=== PATIENT | male | born 1945 | race Caucasian/White ===

== ENCOUNTER 2018-03-31 11:10 | Inpatient (IN) | payer MEDICARE, SELFPAY ==
[2018-03-31] VITALS (11 sets, daily range): BP systolic 94–133; BP diastolic 64–82; PULSE 83–110; RESP 15–29; TEMP 36.6–37.1; O2SAT 92–99; BMI 38.0; BMI 37.3
--- NOTE | 2018-03-31 11:59 | EKG12_ITS ---
Test Reason : SEIZURE Blood Pressure : / mmHG Vent. Rate : 109 BPM Atrial Rate : 109 BPM P-R Int : 210 ms QRS Dur : 078 ms QT Int : 340 ms P-R-T Axes : 053 001 094 degrees QTc Int : 457 ms Sinus tachycardia with 1st degree A-V block Nonspecific T wave abnormality Abnormal ECG Confirmed by NURIA ELIAS, BRIELLE ([id number]), assignment desk editor KIRSTIN MONTANA ([id number]) on 04/03/2018 10:06:10 AM Referred By: CAMILA Confirmed By:BRIELLE QUIÑONES MD
--- NOTE | 2018-03-31 11:59 | CT_ITS ---
STUDY: CT BRAIN WITHOUT CONTRAST REASON FOR EXAM: Male, 72 years old. History of lung cancer and seizure. RADIATION DOSAGE (If Supplied By Facility): CTDIvol = ( 44.99 ) mGy, DLP = ( 880.47 ) mGycm TECHNIQUE: Transaxial CT imaging of the brain was performed without administration of intravenous contrast material. Individualized dose optimization techniques were used for this CT. COMPARISON: None. FINDINGS: Normal soft tissue structures. Normal calvarium. The ventricles are normal in size and position. There is mild prominence of the cortical sulci. There are mild areas of decreased attenuation within the white matter tracts of the supratentorial brain, consistent with microvascular disease changes. Normal basal ganglia and thalami. Normal brainstem. Normal cerebellum. There is no intracranial hemorrhage. There are no findings of an acute ischemic infarction. There are calcifications of the cavernous internal carotid arteries. Normal visualized paranasal sinuses. CT/Brain/Head without Contrast IMPRESSION: 1. No acute intracranial process. 2. If symptoms persist, MRI of the brain is recommended. Electronically Signed: Homero Zhang MD at 13:58 EDT Tel , Service support ,
--- NOTE | 2018-03-31 12:05 | NURSING ---
NO OLD EKGS
--- NOTE | 2018-03-31 12:10 | RAD_ITS ---
STUDY: X-RAY CHEST REASON FOR EXAM: Male, 72 years old. Syncope. History of lung cancer. TECHNIQUE: Single AP portable view of the chest. COMPARISON: Prior comparison studies are not available for review at this time. FINDINGS: There is a left-sided Port-A-Cath with in the superior vena cava. The patient is markedly rotated. There is loss of volume of the right lung with elevation of the medial aspect of the right hemidiaphragm. There is a linear stranding in the right perihilar region which could be due to atelectasis. The left lung base and the left costophrenic angle are not entirely included on this examination. There is no evidence of pleural effusions. Normal size heart. There is prominence of the right hilar region probably exaggerated by patient's positioning. Normal visualized pulmonary arteries. Normal visualized aortic arch and descending thoracic aorta. The thoracic spine is not well-visualized. Normal visualized ribs, clavicles, and shoulders. There is no demonstrated abnormality of the visualized soft tissue structures of the upper abdomen. RAD/Chest 1 View (Portable) IMPRESSION: Mild loss of volume of the right lung. Possible mild right perihilar infiltrate and atelectatic changes. Follow-up exams are recommended. Electronically Signed: Homero Zhang MD at 12:30 EDT Tel , Service support ,
[2018-03-31 12:14] LABS: Absolute Lymphocyte Count 5.01 X10^3/ul (0.83-4.51); Absolute Neutrophil Count 5.8 X10^3/uL (2.0-7.7); Basophil# 0.12 X10^3/uL; Basophil% 0.9 % (0-1); Eosinophil# 0.36 X10^3/uL; Eosinophils% 2.8 % (0-5); Hematocrit 49.9 % (40-54); International Normalized Ratio 1.2; Lymphocyte # 5.01 X10^3/ul (4.0); Lymphocyte % 39.4 % (19-41); Mean Corp Hgb Conc 32.1 g/gl (32-36); Mean Corpuscular Hgb 31.6 pg (27.0-32.0); Mean Corpuscular Volume 98.6 fL (80-94); Mean Platelet Vol. 9.5 fl (6.2-12.0); Monocyte# 1.39 X10^3/uL; Monocyte% 10.9 % (0-10); Neutrophil # 5.79 X10^3/uL (2.7-7.7); Neutrophil % 45.7 % (47-70); Partial Thromboplast Time 30.2 Seconds (24.1-36.2); Platelet Count 330 K/mm3 (150-450); Prothrombin Time (Protime)PT. 14.8 SECONDS (11.7-14.9); RBC Distribution Width CV 14.2 % (11.6-14.6); RBC Distribution Width SD 50.3 fl (35.1-43.9); Red Blood Count 5.06 M/mm3 (4.6-6.2); White Blood Count 12.7 K/mm3 (4.4-11.0)
[2018-03-31 12:20] LABS: Bedside Glucose 85 mg/dL (70-110)
[2018-03-31] MEDS: 0.9% Normal Saline 1,000 ML 150 ML IV ×2 (12:20→17:30)
[2018-03-31 12:23] LABS: Differential Indicated SCAN CRITERIA MET; POSITIVE COUNT NO; POSITIVE DIFFERENTIAL YES; POSITIVE MORPHOLOGY NO
[2018-03-31 12:25] LABS: ALB/GLOB Ratio 0.9 RATIO (0.9-2.4); AST(SGOT) 20 U/L (15-37); Alanine Aminotransfer ALT/SGPT 32 U/L (16-61); Albumin, Serum 3.9 g/dL (3.2-5.0); Alkaline Phosphatase 73 U/L (45-117); Anion Gap 26 (5-15); BUN 19 mg/dL (7-18); BUN/Creat Ratio 13.3 RATIO (10-20); Calcium,Total 7.7 mg/dL (8.5-10.1); Chloride 105 mmol/L (98-107); Creatinine, Serum 1.43 mg/dL (0.70-1.30); EST Glomerular Filtration Rate 52 mL/min (>60); Est Glom Filt Rate - Afr Amer 63 mL/min (>60); Estimated Creatinine Clearance 53.55 ml/min; Globulin 4.4 g/dL (2.2-4.2); Glucose 125 mg/dL (74-106); Lipase 118 U/L (73-393); Potassium 3.9 mmol/L (3.5-5.1); Protein, Total 8.3 g/dL (6.4-8.2); Sodium Level 143 mmol/L (136-145)
[2018-03-31 12:45] LABS: Differential Comment SCANNED; Reactive Lymphocyte 2+
[2018-03-31 13:04] LABS: Lactic Acid 8.6 mmol/L (0.4-2.0)
--- NOTE | 2018-03-31 15:03 | HP.PCM_ITS ---
Problem List (1) Syncope Status: Acute (2) Seizure Status: Acute History of Present Illness Date of Admission: 03/31/18 Chief Complaint: syncopal episode; seizure The patient is a 72 year old M with past medical history of lung cancer, CAD status post stents, diabetes and PE. He was admitted through the ED on 03/31/2018 with complaint of a syncopal episode. Patient lives in the [facility] and was driving to [place] for the weekend with his . He stopped at a gas station to put some air in his tire and he states his wallet dropped on the floor. As he bent over to pick it up he passed out and slumped to the floor. According to his , he was still alert when she told him to lay on the floor and she would come help him. However by the time she got warm difficult to aside, patient was having a seizure which she says involved only his upper extremities. She states it lasted for about a minute and he had postictal drowsiness, and confusion and tongue biting but did not have any fecal or urinary incontinence. She called the squad and in the ambulance, EKG done showed A. fib. He does not have a history of A. fib and has never had a seizure before. He was recently given the all clear about his lung cancer after he had a PET scan in several CT scans. He has had chemotherapy and radiation for the lung cancer which was diagnosed back in 2017 and was being followed up in [place]. He denied any headache, blurred vision, fever or chills, chest pain, abdominal pain, diarrhea vomiting. He also had no palpitations. The ED, vitals were initially significant for heart rate of 11, but was otherwise unremarkable. Chemistry was significant for creatinine of 1.43 and lactic acid of 8.6. Initial troponin was 0.149. CBC showed white cell count of 12.7, and brain CT showed no acute intracranial process. EKG repeated in the ED showed sinus tachycardia. He is been admitted to be managed for new onset seizure in a patient with known lung cancer, lactic acidosis likely due to seizure and new onset A. fib. [] Past Medical History Allergies Penicillins Allergy (Verified 03/31/18 11:20) Other Sulfa (Sulfonamide Antibiotics) Allergy (Verified 03/31/18 11:20) Rash Home Medications: Ambulatory Orders Medication Instructions Recorded Albuterol Aerosols [Ventolin 2.5 mg INHALATION TID 03/31/18 Aerosols] Aspirin [Aspirin, Baby] 81 mg PO DAILY@0800 03/31/18 Calcium Citrate 200 mg PO BID 03/31/18 Clopidogrel Bisulfate [Plavix] 75 mg PO DAILY 03/31/18 Docusate Sodium [Colace] 100 mg PO DAILY 03/31/18 Etanercept [Enbrel] 25 mg SQ FR 03/31/18 Ezetimibe [Zetia] 10 mg PO DAILY 03/31/18 Fenofibrate Nanocrystallized 160 mg PO DAILY 03/31/18 [Triglide] Fluticasone/Vilanterol [Breo 1 each IH BID 03/31/18 Ellipta 200-25 Mcg INH] Furosemide [Lasix] 20 mg PO DAILY 03/31/18 Gabapentin [Neurontin] 300 mg PO BID 03/31/18 Humalog 60 unit SQ BID 03/31/18 Insulin Lispro [Humalog] unit SQ .COMPLEX 03/31/18 Ipratropium/Albuterol Sulfate 3 ml INHALATION TID 03/31/18 [Duoneb] L.acidoph,Paracasei, B.lactis 1 capsule PO DAILY 03/31/18 [Probiotic] Multivitamin [Multiple Vitamins] 1 each PO DAILY 03/31/18 Niacin 500 mg PO DAILY 03/31/18 Boaz-3/Dha/Epa/Fish Oil [Boaz 3 1 each PO DAILY 03/31/18 500 Softgel] Pravastatin [Pravachol] 40 mg PO DAILY 03/31/18 Rivaroxaban [Xarelto] 20 mg PO DAILY 03/31/18 Tiotropium Conover [Spiriva] 18 mcg IH DAILY 03/31/18 Vitamin B Complex/Folic Acid 0.4 mg PO DAILY 03/31/18 [Super B Maxi Complex Caplet] Vitamin C 1,000 mg PO DAILY 03/31/18 Surgical History: - Psychiatric History: No pertinent psych hx Lives: Spouse/ Significant Other Smoking Status: Former smoker Alcohol: Occasional - *Family History Maternal History Items: Hypertension Paternal History Items: No pertinent history Review of Systems Constitutional: Denies: Chills, Fever, Malaise, Weakness, Weight Change Eyes: Denies: Blurred vision, Double vision, Vision Change HEENT: Denies: Head Aches, Sinus Congestion, Sinus Drainage Cardiovascular: Reports: Syncope. Denies: Chest Pain, Chest Tightness, Heaviness, Light Headedness, Palpitations Respiratory: Denies: Cough, Shortness of breath at rest, Sputum production Gastrointestinal: Denies: Abdominal Pain, Nausea, Vomiting Genitourinary: Denies: Dysuria Musculoskeletal: Denies: Joint Pain, Joint Tenderness Skin: Denies: Rash, Wounds Neurological: Reports: Seizures. Denies: Balance problems, Blurred vision, Change in Speech, Slurred speech, Confusion, Focal weakness, Incoordination Psychiatric: Denies: Anxiety, Depression, Homicidal Ideations, Suicidal Ideati ons Hematologic/ Lymphatic: Denies: Easy Bruising, Easy Bleeding VTE Information - Inpt Only VTE Present on Admission: No VTE Mechan Device Prophylaxis: SCD's Patient Problems: Active and Suspected Problems Syncope (Acute) Seizure (Acute) - Physical Exam General: Alert, Oriented x3, Cooperative, No apparent distress HEENT: Atraumatic, PERRLA, EOMI, Normocephalic Oral: Moist Mucosa Neck: Supple, No JVD, Negative Carotid Bruits Lungs: Clear to auscultation, Normal air movement, No rhonchi, No wheeze, No rales Cardiovascular: Regular rate, Regular Rhythm, Normal S1, Normal S2, No murmurs Abdomen: Bowel Sounds Present, Soft, Non Tender, Non-Distended, No Hepato- splenomegaly Extremities: No clubbing, No cyanosis, No edema, Capillary Refill Less than 3 Seconds Skin: No rashes, No breakdown Musculoskeletal: No Tenderness to Palpation of Joints or Extremities Lymphatic: No Cervical, Supraclavicular, or Inguinal Adenopathy Neurological: Cranial nerves II-XII grossly intact, Neuro grossly intact, Motor Exam 5/5 strength throughout Psych/Mental Status: Normal Affect, Appropriate, Alert and oriented to time, place, person, mood and affect Vital Signs Temp Pulse Resp BP Pulse Ox 98.1 F 88 18 129/82 H 99 03/31/18 11:11 03/31/18 14:46 03/31/18 14:46 03/31/18 14:46 03/31/18 14:46 Oxygen Flow Rate (L/min) 3 Oxygen Delivery Method Room Air Weight: 287 lb 14.779 oz Body Mass Index (BMI) 38.0 Finger Stick Blood Glucose 85 Laboratory Tests Past 24 Hrs 03/31/18 03/31/18 03/31/18 11:15 11:15 11:15 WBC 12.7 H RBC 5.06 Hgb 16.0 Hct 49.9 MCV 98.6 H MCH 31.6 MCHC 32.1 RDW 14.2 RDW Differential 50.3 H Plt Count 330 MPV 9.5 Immature Gran % (Auto) 0.300 Neut % (Auto) 45.7 L Lymph % (Auto) 39.4 [place] % (Auto) 10.9 H Eos % (Auto) 2.8 Baso % (Auto) 0.9 Absolute Neuts (auto) 5.8 Absolute Lymphs (auto) 5.01 H Total Counted Not Reportable Differential Comment SCANNED Reactive Lymphocytes 2+ PT 14.8 INR 1.2 APTT 30.2 Sodium 143 Potassium 3.9 Chloride 105 Carbon Dioxide 12.0 L Anion Gap 26 H BUN 19 H Creatinine 1.43 H Estim Creat Clear Calc 53.55 Est GFR (MDRD) Af Amer 63 Est GFR (MDRD) Non-Af 52 L BUN/Creatinine Ratio 13.3 Glucose 125 H Lactic Acid Calcium 7.7 L Total Bilirubin 0.80 AST 20 ALT 32 Alkaline Phosphatase 73 Troponin I 0.149 H Total Protein 8.3 H Albumin 3.9 Globulin 4.4 H Albumin/Globulin Ratio 0.9 Lipase 118 Ethyl Alcohol 03/31/18 03/31/18 11:15 12:05 WBC RBC Hgb Hct MCV MCH MCHC RDW RDW Differential Plt Count MPV Immature Gran % (Auto) Neut % (Auto) Lymph % (Auto) [place] % (Auto) Eos % (Auto) Baso % (Auto) Absolute Neuts (auto) Absolute Lymphs (auto) Total Counted Differential Comment Reactive Lymphocytes PT INR APTT Sodium Potassium Chloride Carbon Dioxide Anion Gap BUN Creatinine Estim Creat Clear Calc Est GFR (MDRD) Af Amer Est GFR (MDRD) Non-Af BUN/Creatinine Ratio Glucose Lactic Acid 8.6 H* Calcium Total Bilirubin AST ALT Alkaline Phosphatase Troponin I Total Protein Albumin Globulin Albumin/Globulin Ratio Lipase Ethyl Alcohol 4.0 POC Glucose 03/31/18 12:16 POC Glucose [address] 03/31/18 11:59 IMPRESSION: 1. No acute intracranial process. 2. If symptoms persist, MRI of the brain is recommended. Electronically Signed: Homero Zhang MD at 13:58 EDT Tel , Service support , Chest X-Ray 03/31/18 12:10 IMPRESSION: Mild loss of volume of the right lung. Possible mild right perihilar infiltrate and atelectatic changes. Follow-up exams are recommended. Electronically Signed: Homero Zhang MD at 12:30 EDT Tel , Service support , Assessment/Plan All Active Problems Syncope (Acute) Seizure (Acute) 72-year-old male admitted with syncopal episode and new onset seizures. 1. New onset seizure * has no history of seizures; had a bried 1 minute tonic clonic seizure witnessed by his today after he had a syncopal episode. * had tongue biting, and post ictal drowsiness, but no urine or fecal incontinence * has history of lung cancer diagnosed 2017 and was recently given the all clear after radiation and chemotherapy; has never had a brain MRI though * admit to PCU with telemetry * neurology consult * will give one dose of Keppra, pending neurology review * brain CT was negative; will get brain MRI to rule out brain mets * 2. New onset Afib * EKG done in AMbulance showed afib; however EKG on admission in ED showed sinus tachycardia * has no history of afib * check TSH; consult cardiology * already on xarelto o/a of history of PE * 3. NSTEMI * troponin on admission was 0.149;' EKG showed sinus tachycardia with first degreee AV block; no acute ST changes * will cycle troponin * aspirin 81mg and SL nitroglycerin prn * this elevated troponin may be due to demand ischemia from seizure; * will consult cardiology for further workup in light of elevated NSEMI and new onset Afib * 4. LActic acidosis: * lactic was 8.6 on admission. This is likely due to seizure * Will hydrate with IV fluid and repeat lactic acid. * 5. Diabetes mellitus: accuchecks ACHS. ISS. On humalog 60IU bid 6. CAD s/p stents: on aspirin, plavix and statin as well as fenofibrate and ezetimibe 7. Chronic respiratory failure due to COPD: on 2L of oxgyen continuous. B reathing treatments 8. COPD: as under 7. 9. Sleep apnea: continue CPAP with home setting. 10. History of PE: on xarelto. 11. history of lung cancer: in remission. Says he has been given all clear by his doctors after having chemotherapy and radiation. Had a reent PET scan. DVT prophylaxis: on xarelto CODE STATUS: Full code. Patient and counseled extensively about different types of CODE STATUS including full code, DNR CCA and DNR CCA. Patient elects to be full code. Total ohgo-er-jepn time 16 minutes. 7:15pm: Troponin trended up to about 4.8. Has no chest pain. EKG showed t wave inversions in lateral leads. Discussed with Dr. Cloud. Will hold Xarelto and start patient on Lovenox from tomorrow. Patient will likely need a cath on Monday. Code Visit Inpatient E&M: 54443 Init Hosp L3 Procedures: 81094 Advncd Care Plan 30 Min
--- NOTE | 2018-03-31 15:03 | NURSING ---
PCU AFIB, NEW ONSET SEIZURE KORAM
--- NOTE | 2018-03-31 15:04 | ED.VISSUMM ---
- ER Visit Summary Date of Service: 03/31/18 Chief Complaint: Seizure History of Present Illness: The patient is a 72 M who is from the [facility]. He and his are traveling to [place] for the weekend. They stopped here at a gas station to get gas and air in the tires. When he got out of the truck he tripped on the curb and fell. After that he does not remember anything. got out of the truck and saw him leaning up against it he then reportedly collapsed and began to have a's generalized seizure that lasted less than 1 minute. She states that during this time he had blood from the mouth and turned purple. EMS arrived they noted new onset atrial fibrillation with an RVR and transmitted EKG. Patient has known coronary artery disease and most recently was given a negative cancer evaluation for non-small cell lung cancer which she battled for the past year at the [facility]. He is on Xarelto and Plavix for. Xarelto is for DVT PE. He has not missed any doses. Physical Examination: Afebrile vital signs show tachycardia. Gen: Well-nourished well-developed Head: Normocephalic atraumatic Eyes: Perrl EOMI ENT: TMs clear no rhinorrhea moist mucous membranes there is a left-sided tongue abrasion. Neck: Supple no lymphadenopathy no JVD nontender CVS: Irregularly irregular rhythm tachycardic no murmurs normal S1-S2 Respiratory: No distress clear to auscultation bilaterally chest nontender Abdomen: Soft nontender nondistended normal bowel sounds no masses Back: Nontender Extremity: Nontender no edema Skin: Normal color no rash Neuro: alert orientated ?3 lethargic CN II-XII intact normal strength sensation reflexes gait cerebellar Psych: Normal affect normal mood Test Results: White count 12.7. Creatinine 1.43. Lactic acid 8.6. Troponin elevated 0.149. EKG is a sinus rhythm at a rate of 109 with first-degree AV block. Chest x-ray shows right upper lobe infiltrate (from online resources I see that this is a chronic finding for him) CT brain negative for hemorrhage or obvious lesion Emergency Department Course and Treatment: Patient received IV fluids. Patient on the monitor during my initial examination and prehospital with EMS appears to have atrial fibrillation on the monitor. However by the time we got the EKG he was in a sinus first-degree block rhythm. From the description the gives the physical exam findings and laboratory analysis this would be consistent with seizure. The elevated troponin could be from the A. fib with RVR, hypoxemia due to seizure, or primary cardiac event, or other. Plan is admission into the hospital. Impression: 1. Seizure 2. Paroxysmal atrial fibrillation 3. Elevated troponin This note was generated with [employer] dictation software. It may contain incorrect words, spelling, and punctuation that were not noted in review of the chart prior to signing ED Disposition - Plan for ED Patient: Chief Complaint: Seizure Referrals: [facility] Doctor,Out of [Primary Care Provider] -
--- NOTE | 2018-03-31 15:08 | ED.DCSUM_ITS ---
- ER Visit Summary Date of Service: 03/31/18 Chief Complaint: Seizure History of Present Illness: The patient is a 72 M who is from the [facility]. He and his are traveling to [place] for the weekend. They stopped here at a gas station to get gas and air in the tires. When he got out of the truck he tripped on the curb and fell. After that he does not remember anything. got out of the truck and saw him leaning up against it he then reportedly collapsed and began to have a's generalized seizure that lasted less than 1 minute. She states that during this time he had blood from the mouth and turned purple. EMS arrived they noted new onset atrial fibrillation with an RVR and transmitted EKG. Patient has known coronary artery disease and most recently was given a negative cancer evaluation for non-small cell lung cancer which she battled for the past year at the [facility]. He is on Xarelto and Plavix for. Xarelto is for DVT PE. He has not missed any doses. Physical Examination: Afebrile vital signs show tachycardia. Gen: Well-nourished well-developed Head: Normocephalic atraumatic Eyes: Perrl EOMI ENT: TMs clear no rhinorrhea moist mucous membranes there is a left-sided tongue abrasion. Neck: Supple no lymphadenopathy no JVD nontender CVS: Irregularly irregular rhythm tachycardic no murmurs normal S1-S2 Respiratory: No distress clear to auscultation bilaterally chest nontender Abdomen: Soft nontender nondistended normal bowel sounds no masses Back: Nontender Extremity: Nontender no edema Skin: Normal color no rash Neuro: alert orientated ?3 lethargic CN II-XII intact normal strength sensation reflexes gait cerebellar Psych: Normal affect normal mood Test Results: White count 12.7. Creatinine 1.43. Lactic acid 8.6. Troponin elevated 0.149. EKG is a sinus rhythm at a rate of 109 with first-degree AV block. Chest x-ray shows right upper lobe infiltrate (from online resources I see that this is a chronic finding for him) CT brain negative for hemorrhage or obvious lesion Emergency Department Course and Treatment: Patient received IV fluids. Patient on the monitor during my initial examination and prehospital with EMS appears to have atrial fibrillation on the monitor. However by the time we got the EKG he was in a sinus first-degree block rhythm. From the description the gives the physical exam findings and laboratory analysis this would be consistent with seizure. The elevated troponin could be from the A. fib with RVR, hypoxemia due to seizure, or primary cardiac event, or other. Plan is admission into the hospital. Impression: 1. Seizure 2. Paroxysmal atrial fibrillation 3. Elevated troponin This note was generated with [employer] dictation software. It may contain incorrect words, spelling, and punctuation that were not noted in review of the chart prior to signing ED Disposition - Plan for ED Patient: Chief Complaint: Seizure Referrals: [facility] Doctor,Out of [Primary Care Provider] -
[2018-03-31 16:14] LABS: Reflex Lactate? Y
[2018-03-31] MEDS: Ibuprofen 400 MG Tablet PO (17:25)
[2018-03-31 17:26] LABS: Lactic Acid 0.9 mmol/L (0.4-2.0)
[2018-03-31] MEDS: Gabapentin 300 MG Capsule PO (17:28)
[2018-03-31 17:40] LABS: Bedside Glucose 66 mg/dL (70-110)
--- NOTE | 2018-03-31 18:24 | EKG12_ITS ---
Test Reason : Blood Pressure : / mmHG Vent. Rate : 091 BPM Atrial Rate : 091 BPM P-R Int : 224 ms QRS Dur : 092 ms QT Int : 376 ms P-R-T Axes : 052 -11 153 degrees QTc Int : 462 ms Sinus rhythm with 1st degree A-V block T wave abnormality, consider lateral ischemia Prolonged QT Abnormal ECG Confirmed by NURIA ELIAS, BRIELLE ([id number]), makeup editor KIRSTIN MONTANA ([id number]) on 04/05/2018 4:08:17 PM Referred By: ALPHONSE Confirmed By:BRIELLE QUIÑONES MD
[2018-03-31 18:32] LABS: Thyroid Stim Hormone (TSH) 1.26 uIU/mL (0.358-3.74)
[2018-03-31] MEDS: Atorvastatin Calcium 40 MG Tablet PO (18:42)
[2018-03-31 20:55] LABS: Bedside Glucose 129 mg/dL (70-110)
[2018-03-31 22:49] LABS: Bacteria 0 SEEN /hpf (None Seen); Mucous, Urine 0 SEEN /hpf (<or=2+); Red Blood Cells-Urine 0 SEEN /hpf (0-5); White Blood Cells 0 SEEN /hpf (0-5)
[2018-03-31 23:05] LABS: Color, Urine Yellow (Yellow); Glucose, Dipstick Normal (Normal); Ketone-Dipstick Negative (Negative); Leukocyte Esterase-Dipstick Negative /ul (Negative); Nitrite-Dipstick Negative (Negative); Occult Blood-Urine Negative /ul (Negative); Protein-Dipstick 30 mg/dl (Negative); Specific Gravity, Urine 1.015 (1.002-1.030); Urine Bilirubin Dipstick Negative (Negative); Urine Clarity Sl. Cloudy (Clear); Urine Urobilinogen Normal (Normal)
[2018-03-31 23:09] LABS: Amphetamine Urine VISTA NEGATIVE (<1000 ng/mL); Barbiturate Urine VISTA NEGATIVE (< 200 ng/mL); Benzodiazepine Urine VISTA NEGATIVE (< 200 ng/mL); Cocaine Urine VISTA NEGATIVE (< 300 ng/mL); Ecstacy Urine VISTA NEGATIVE (< 500 ng/mL); Methadone Urine VISTA NEGATIVE (< 300 ng/mL); PCP Urine VISTA NEGATIVE (< 25 ng/mL); THC Urine VISTA NEGATIVE (< 50 ng/mL); Vista UDS pH Range 7
[2018-03-31 23:10] LABS: Squamous Epithelial Cells - UA 5-10 SEEN /hpf (0-5)
[2018-03-31 23:15] LABS: Bedside Glucose 128 mg/dL (70-110)
[2018-03-31] MEDS: Ipratropium/Albuterol Sulfate 3 ML AMPUL.NEB INHALATION (23:28)
[2018-03-31] MEDS: Budesonide Respules 0.5 MG/2 ML AMPUL.NEB. INHALATION (23:28)
[2018-04-01] VITALS (15 sets, daily range): BP systolic 125–157; BP diastolic 56–82; PULSE 79–99; RESP 15–24; TEMP 36.8–37.2; O2SAT 95–98
[2018-04-01] MEDS: 0.9% Normal Saline 1,000 ML 150 ML IV ×4 (00:06→21:35)
[2018-04-01] MEDS: Ibuprofen 400 MG Tablet PO (01:19)
--- NOTE | 2018-04-01 01:21 | NURSING ---
ONE TIME ORDER OBTAINED FROM DR VELÁSQUEZ FOR MOTRIN 400 MG PER PT'S REQUEST FOR C/O BACK PAIN. PT REPORTS TYLENOL DOESN'T HELP HIM. PT INFORMED THAT THIS IS A ONE TIME ORDER AND TO TRY TYLENOL FOR FUTURE NEEDS.
[2018-04-01 03:51] LABS: Bedside Glucose 116 mg/dL (70-110)
--- NOTE | 2018-04-01 04:08 | NURSING ---
NO S/S OF ANY SEIZURE ACTIVITY
[2018-04-01 07:09] LABS: Absolute Lymphocyte Count 1.27 X10^3/ul (0.83-4.51); Basophil# 0.06 X10^3/uL; Basophil% 0.6 % (0-1); Eosinophil# 0.16 X10^3/uL; Eosinophils% 1.6 % (0-5); Hematocrit 41.6 % (40-54); Hemoglobin 13.7 g/dl (13.0-16.5); Lymphocyte # 1.27 X10^3/ul (4.0); Lymphocyte % 12.6 % (19-41); Mean Corp Hgb Conc 32.9 g/gl (32-36); Mean Corpuscular Hgb 31.2 pg (27.0-32.0); Mean Corpuscular Volume 94.8 fL (80-94); Mean Platelet Vol. 8.9 fl (6.2-12.0); Monocyte% 14.9 % (0-10); Neutrophil # 7.04 X10^3/uL (2.7-7.7); Neutrophil % 70.2 % (47-70); Platelet Count 222 K/mm3 (150-450); RBC Distribution Width CV 14.2 % (11.6-14.6); RBC Distribution Width SD 48.9 fl (35.1-43.9); Red Blood Count 4.39 M/mm3 (4.6-6.2)
[2018-04-01 07:15] LABS: POSITIVE COUNT NO; POSITIVE DIFFERENTIAL NO; POSITIVE MORPHOLOGY NO
[2018-04-01 07:16] LABS: Bedside Glucose 109 mg/dL (70-110)
[2018-04-01 07:41] LABS: Anion Gap 11 (5-15); BUN 22 mg/dL (7-18); Calcium,Total 7.2 mg/dL (8.5-10.1); Chloride 109 mmol/L (98-107); Creatinine, Serum 1.69 mg/dL (0.70-1.30); EST Glomerular Filtration Rate 43 mL/min (>60); Est Glom Filt Rate - Afr Amer 52 mL/min (>60); Glucose 105 mg/dL (74-106); Potassium 4.3 mmol/L (3.5-5.1); Sodium Level 142 mmol/L (136-145)
[2018-04-01] MEDS: Ipratropium/Albuterol Sulfate 3 ML AMPUL.NEB INHALATION ×3 (07:49→19:29)
[2018-04-01] MEDS: Budesonide Respules 0.5 MG/2 ML AMPUL.NEB. INHALATION ×2 (07:49→19:29)
[2018-04-01] MEDS: Aspirin 81 MG TAB.CHEW PO (09:22)
[2018-04-01] MEDS: Gabapentin 300 MG Capsule PO ×2 (09:22→17:18)
[2018-04-01] MEDS: Multivitamins,Therapeutic Tablet 1 TABLET PO (09:22)
[2018-04-01] MEDS: Ascorbic Acid 500 MG Tablet 1000 MG PO (09:23)
[2018-04-01] MEDS: Calcium (Elemental) 500 MG Tablet PO ×2 (09:24→17:22)
[2018-04-01] MEDS: Docusate Sodium 100 MG Capsule PO (09:24)
[2018-04-01] MEDS: Clopidogrel Bisulfate 75 MG Tablet PO (09:25)
[2018-04-01] MEDS: Pravastatin 40 MG Tablet PO (09:25)
[2018-04-01] MEDS: Enoxaparin 120 MG/0.8 ML Syringe SC ×2 (09:25→21:35)
[2018-04-01] MEDS: Furosemide 20 MG Tablet PO (09:25)
[2018-04-01] MEDS: Niacin SA 500 MG Tablet PO (09:25)
[2018-04-01] MEDS: Fenofibrate 145 MG Tablet PO (09:26)
[2018-04-01] MEDS: Ezetimibe 10 MG Tablet PO (09:26)
--- NOTE | 2018-04-01 10:00 | MRI_ITS ---
STUDY: MRI BRAIN WITH AND WITHOUT CONTRAST REASON FOR EXAM: Male, 72 years old. Syncope. History of lung carcinoma. TECHNIQUE: Standardized multiplanar fat and water weighted pulse sequences were obtained. 10 ml of Gadavist contrast material was administered intravenously for the contrast portion of the examination. COMPARISON: CT head without contrast 03/31/2018. FINDINGS: No restricted diffusion to suspect acute or subacute ischemic infarct. No enhancing lesions intraaxially or extra-axially to suggest intracranial metastatic disease. Normal size of the ventricles and extra-axial spaces for the patient's age. Periventricular white matter T2 FLAIR hyperintensity foci are chronic white matter ischemic changes. Normal bilateral basal ganglia. Normal thalami. There is no extra-axial fluid accumulation. Normal flow voids within the major intracranial circulation suggesting patency by spin echo criteria. Normal venous enhancement. There is no enhancing intra-axial or extra-axial abnormality. Normal sella turcica, pituitary gland, infundibular stalk, optic chiasm and hypothalamus. Normal tectal plate and pineal gland. Normal midbrain, gino and medulla. Normal cerebellum. Normal basal cisterns. Normal bilateral temporal bones. Normal bilateral internal auditory canals. No demonstrated orbital abnormality, within the constraints of a routine brain study. Normal visualized paranasal sinuses. Normal calvarium and skull base. Normal visualized soft tissue structures. Normal visualized upper cervical spine. MRI/Brain W/WO Contrast IMPRESSION: 1. No MRI evidence of intracranial metastatic disease, acute or subacute ischemic infarct or acute intracranial abnormality. 2. Chronic white matter ischemic changes in both cerebral hemispheres. Electronically Signed: New Busby MD at 12:21 EDT , Service support ,
[2018-04-01 10:40] LABS: CPK Total, Creatine Kinase 756 U/L (39-308)
[2018-04-01] MEDS: Insulin Lispro 100 UNIT/ML INSULN.PEN SC ×3 (12:45→21:34)
[2018-04-01 12:56] LABS: Bedside Glucose 269 mg/dL (70-110)
--- NOTE | 2018-04-01 12:58 | PCM.PROGNOTE ---
<Erica Singh - Last Filed: 04/01/18 13:17> Patient Problems: Active and Suspected Problems Syncope (Acute) Seizure (Acute) Coronary artery disease (Acute) Non-STEMI (non-ST elevated myocardial infarction) (Acute) DVT (deep venous thrombosis) (Acute) Pulmonary embolism (Acute) Subjective: Patient seen and examined. No acute events overnight. Denies further seizure activity. Denies chest pain. Complains of shortness of breath and generalized weakness which patient reports has been ongoing for a while. Denies history of seizure. - Physical Exam General: Alert, Oriented x3, Cooperative, No apparent distress HEENT: Atraumatic, PERRLA, EOMI, Normocephalic Neck: Supple, No JVD, Negative Carotid Bruits Lungs: Clear to auscultation, Normal air movement Cardiovascular: Regular rate, Regular Rhythm, Normal S1, Normal S2, No murmurs Abdomen: Bowel Sounds Present, Soft, Non Tender, Non-Distended, Obese Extremities: No clubbing, No cyanosis, No edema, Capillary Refill Less than 3 Seconds Skin: No rashes, No breakdown Musculoskeletal: No Tenderness to Palpation of Joints or Extremities Neurological: Cranial nerves II-XII grossly intact, Neuro grossly intact Psych/Mental Status: Normal Affect, Appropriate Vital Signs Temp Pulse Resp BP Pulse Ox 98.7 F 92 20 H 125/56 H 95 04/01/18 09:50 04/01/18 09:50 04/01/18 09:50 04/01/18 09:50 04/01/18 09:50 Oxygen Flow Rate (L/min) 2 Oxygen Delivery Method Nasal Cannula Weight: 275 lb Body Mass Index (BMI) 37.3 Finger Stick Blood Glucose 85 Intake and Output for Last 24 Hours 03/30/18 03/31/18 04/01/18 23:59 23:59 23:59 Intake Total 600 / 600 3489 / 3489 Output Total 1225 / 1225 Balance 600 / 600 2264 / 2264 Laboratory Tests Past 24 Hrs 03/31/18 03/31/18 03/31/18 12:05 16:35 16:55 WBC RBC Hgb Hct MCV MCH MCHC RDW RDW Differential Plt Count MPV Immature Gran % (Auto) Neut % (Auto) Lymph % (Auto) [place] % (Auto) Eos % (Auto) Baso % (Auto) Absolute Neuts (auto) Absolute Lymphs (auto) Total Counted Sodium Potassium Chloride Carbon Dioxide Anion Gap BUN Creatinine Estim Creat Clear Calc Est GFR (MDRD) Af Amer Est GFR (MDRD) Non-Af BUN/Creatinine Ratio Glucose Lactic Acid 8.6 H* 0.9 Calcium Total Creatine Kinase Troponin I TSH 1.26 Urine Color Urine Clarity Urine pH Ur Specific [place] Urine Protein Urine Glucose (UA) Urine Ketones Urine Occult Blood Urine Nitrite Urine Bilirubin Urine Urobilinogen Ur Leukocyte Esterase Urine RBC Urine WBC Ur Squamous Epith Cells Urine Bacteria Urine Mucus Urine Opiates Screen Urine Methadone Screen Ur Barbiturates Screen Ur Phencyclidine Scrn Ur Amphetamines Screen U Methamphetamin-MDMA U Benzodiazepines Scrn Urine Cocaine Screen U Cannabinoids Screen Ur Drug Screen Comment 03/31/18 03/31/18 03/31/18 16:55 19:55 22:43 WBC RBC Hgb Hct MCV MCH MCHC RDW RDW Differential Plt Count MPV Immature Gran % (Auto) Neut % (Auto) Lymph % (Auto) [place] % (Auto) Eos % (Auto) Baso % (Auto) Absolute Neuts (auto) Absolute Lymphs (auto) Total Counted Sodium Potassium Chloride Carbon Dioxide Anion Gap BUN Creatinine Estim Creat Clear Calc Est GFR (MDRD) Af Amer Est GFR (MDRD) Non-Af BUN/Creatinine Ratio Glucose Lactic Acid Calcium Total Creatine Kinase Troponin I 4.880 H* 8.400 H* TSH Urine Color Yellow Urine Clarity Sl. Cloudy Urine pH 5.0 Ur Specific [place] 1.015 Urine Protein 30 H Urine Glucose (UA) Normal Urine Ketones Negative Urine Occult Blood Negative Urine Nitrite Negative Urine Bilirubin Negative Urine Urobilinogen Normal Ur Leukocyte Esterase Negative Urine RBC 0 SEEN Urine WBC 0 SEEN Ur Squamous Epith Cells 5-10 SEEN Urine Bacteria 0 SEEN Urine Mucus 0 SEEN Urine Opiates Screen Urine Methadone Screen Ur Barbiturates Screen Ur Phencyclidine Scrn Ur Amphetamines Screen U Methamphetamin-MDMA U Benzodiazepines Scrn Urine Cocaine Screen U Cannabinoids Screen Ur Drug Screen Comment 03/31/18 04/01/18 04/01/18 22:43 06:25 06:25 WBC 10.0 RBC 4.39 L Hgb 13.7 Hct 41.6 MCV 94.8 H MCH 31.2 MCHC 32.9 RDW 14.2 RDW Differential 48.9 H Plt Count 222 MPV 8.9 Immature Gran % (Auto) 0.100 Neut % (Auto) 70.2 H Lymph % (Auto) 12.6 L [place] % (Auto) 14.9 H Eos % (Auto) 1.6 Baso % (Auto) 0.6 Absolute Neuts (auto) 7.0 Absolute Lymphs (auto) 1.27 Total Counted Not Reportable Sodium 142 Potassium 4.3 Chloride 109 H Carbon Dioxide 22.0 Anion Gap 11 BUN 22 H Creatinine 1.69 H Estim Creat Clear Calc 44.00 Est GFR (MDRD) Af Amer 52 L Est GFR (MDRD) Non-Af 43 L BUN/Creatinine Ratio 13.0 Glucose 105 Lactic Acid Calcium 7.2 L Total Creatine Kinase Troponin I TSH Urine Color Urine Clarity Urine pH Ur Specific [place] Urine Protein Urine Glucose (UA) Urine Ketones Urine Occult Blood Urine Nitrite Urine Bilirubin Urine Urobilinogen Ur Leukocyte Esterase Urine RBC Urine WBC Ur Squamous Epith Cells Urine Bacteria Urine Mucus Urine Opiates Screen NEGATIVE Urine Methadone Screen NEGATIVE Ur Barbiturates Screen NEGATIVE Ur Phencyclidine Scrn NEGATIVE Ur Amphetamines Screen NEGATIVE U Methamphetamin-MDMA NEGATIVE U Benzodiazepines Scrn NEGATIVE Urine Cocaine Screen NEGATIVE U Cannabinoids Screen NEGATIVE Ur Drug Screen Comment 04/01/18 06:25 WBC RBC Hgb Hct MCV MCH MCHC RDW RDW Differential Plt Count MPV Immature Gran % (Auto) Neut % (Auto) Lymph % (Auto) [place] % (Auto) Eos % (Auto) Baso % (Auto) Absolute Neuts (auto) Absolute Lymphs (auto) Total Counted Sodium Potassium Chloride Carbon Dioxide Anion Gap BUN Creatinine Estim Creat Clear Calc Est GFR (MDRD) Af Amer Est GFR (MDRD) Non-Af BUN/Creatinine Ratio Glucose Lactic Acid Calcium Total Creatine Kinase 756 H Troponin I TSH Urine Color Urine Clarity Urine pH Ur Specific [place] Urine Protein Urine Glucose (UA) Urine Ketones Urine Occult Blood Urine Nitrite Urine Bilirubin Urine Urobilinogen Ur Leukocyte Esterase Urine RBC Urine WBC Ur Squamous Epith Cells Urine Bacteria Urine Mucus Urine Opiates Screen Urine Methadone Screen Ur Barbiturates Screen Ur Phencyclidine Scrn Ur Amphetamines Screen U Methamphetamin-MDMA U Benzodiazepines Scrn Urine Cocaine Screen U Cannabinoids Screen Ur Drug Screen Comment POC Glucose 04/01/18 04/01/18 04/01/18 12:44 07:00 03:46 POC Glucose 269 H 109 116 H 03/31/18 03/31/18 03/31/18 23:05 20:08 17:29 POC Glucose 128 H 129 H 66 L Medical Necessity - Tobacco Use Smoking Status: Former smoker Assessment/Plan All Active Problems Syncope (Acute) Seizure (Acute) Coronary artery disease (Acute) Non-STEMI (non-ST elevated myocardial infarction) (Acute) DVT (deep venous thrombosis) (Acute) Pulmonary embolism (Acute) 1. New onset seizure-witnessed by . No further seizure activity. Evaluated by neurology. Neurology recommending initiating Keppra 500 mg p.o. twice daily. MRI of brain negative. Plan for EEG tomorrow. CK 756. Seizure precautions. 2. New onset atrial fibrillation-patient reported to have A. fib and ambulance. Sinus tachycardia on admission. Currently sinus rhythm. Continue Xarelto which patient is taking due to history of PE. TSH within normal limits. Cardiology consulted. Monitor telemetry. 3. NSTEMI-troponin 0.1, 4.8, 8.4. No EKG changes. Patient denies chest pain. Suspect demand ischemia secondary to #1. Cardiology consulted. 4. Lactic acidosis-lactic acid 8.6 on admission. Repeat lactic acid 0.9. Suspect reactive due to seizure. 5. Type 2 diabetes [id number] before meals at bedtime with sliding scale insulin. Continue long-acting regimen. 6. CAD status post stents x4-patient states most recent intervention was approximately 5 years ago. Continue aspirin, Plavix, statin, fenofibrate, ezetimibe, xarelto. 7. Chronic hypoxic respiratory failure due to chronic COPD-continue supplement oxygen to maintain O2 at or above 90%. As needed aerosols. 8. Obstructive sleep apnea-continue CPAP. 9. History of PE-patient states this occurred approximately 1 year ago. On Xarelto. 10. Obesity-encourage diet lifestyle modifications. 11. Elevated creatinine-suspect chronic kidney disease stage III. No prior labs for comparison. Trend BMP. DVT prophylaxis-Xarelto. This patient was seen by RANDALL Cole under the supervision of Dr. Lou. <Dick Lou - Last Filed: 04/01/18 16:17> - Physical Exam Vital Signs Temp Pulse Resp BP Pulse Ox 98.7 F 93 24 H 125/56 H 95 04/01/18 09:50 04/01/18 15:49 04/01/18 13:11 04/01/18 09:50 04/01/18 09:50 Oxygen Flow Rate (L/min) 2 Oxygen Delivery Method Nasal Cannula Weight: 275 lb Body Mass Index (BMI) 37.3 Finger Stick Blood Glucose 85 Intake and Output for Last 24 Hours 03/30/18 03/31/18 04/01/18 23:59 23:59 23:59 Intake Total 600 / 600 3489 / 3489 Output Total 1225 / 1225 Balance 600 / 600 2264 / 2264 Laboratory Tests Past 24 Hrs 03/31/18 03/31/18 03/31/18 16:35 16:55 16:55 WBC RBC Hgb Hct MCV MCH MCHC RDW RDW Differential Plt Count MPV Immature Gran % (Auto) Neut % (Auto) Lymph % (Auto) [place] % (Auto) Eos % (Auto) Baso % (Auto) Absolute Neuts (auto) Absolute Lymphs (auto) Total Counted Sodium Potassium Chloride Carbon Dioxide Anion Gap BUN Creatinine Estim Creat Clear Calc Est GFR (MDRD) Af Amer Est GFR (MDRD) Non-Af BUN/Creatinine Ratio Glucose Lactic Acid 0.9 Calcium Total Creatine Kinase Troponin I 4.880 H* TSH 1.26 Urine Color Urine Clarity Urine pH Ur Specific [place] Urine Protein Urine Glucose (UA) Urine Ketones Urine Occult Blood Urine Nitrite Urine Bilirubin Urine Urobilinogen Ur Leukocyte Esterase Urine RBC Urine WBC Ur Squamous Epith Cells Urine Bacteria Urine Mucus Urine Opiates Screen Urine Methadone Screen Ur Barbiturates Screen Ur Phencyclidine Scrn Ur Amphetamines Screen U Methamphetamin-MDMA U Benzodiazepines Scrn Urine Cocaine Screen U Cannabinoids Screen Ur Drug Screen Comment 03/31/18 03/31/18 03/31/18 19:55 22:43 22:43 WBC RBC Hgb Hct MCV MCH MCHC RDW RDW Differential Plt Count MPV Immature Gran % (Auto) Neut % (Auto) Lymph % (Auto) [place] % (Auto) Eos % (Auto) Baso % (Auto) Absolute Neuts (auto) Absolute Lymphs (auto) Total Counted Sodium Potassium Chloride Carbon Dioxide Anion Gap BUN Creatinine Estim Creat Clear Calc Est GFR (MDRD) Af Amer Est GFR (MDRD) Non-Af BUN/Creatinine Ratio Glucose Lactic Acid Calcium Total Creatine Kinase Troponin I 8.400 H* TSH Urine Color Yellow Urine Clarity Sl. Cloudy Urine pH 5.0 Ur Specific [place] 1.015 Urine Protein 30 H Urine Glucose (UA) Normal Urine Ketones Negative Urine Occult Blood Negative Urine Nitrite Negative Urine Bilirubin Negative Urine Urobilinogen Normal Ur Leukocyte Esterase Negative Urine RBC 0 SEEN Urine WBC 0 SEEN Ur Squamous Epith Cells 5-10 SEEN Urine Bacteria 0 SEEN Urine Mucus 0 SEEN Urine Opiates Screen NEGATIVE Urine Methadone Screen NEGATIVE Ur Barbiturates Screen NEGATIVE Ur Phencyclidine Scrn NEGATIVE Ur Amphetamines Screen NEGATIVE U Methamphetamin-MDMA NEGATIVE U Benzodiazepines Scrn NEGATIVE Urine Cocaine Screen NEGATIVE U Cannabinoids Screen NEGATIVE Ur Drug Screen Comment 04/01/18 04/01/18 04/01/18 06:25 06:25 06:25 WBC 10.0 RBC 4.39 L Hgb 13.7 Hct 41.6 MCV 94.8 H MCH 31.2 MCHC 32.9 RDW 14.2 RDW Differential 48.9 H Plt Count 222 MPV 8.9 Immature Gran % (Auto) 0.100 Neut % (Auto) 70.2 H Lymph % (Auto) 12.6 L [place] % (Auto) 14.9 H Eos % (Auto) 1.6 Baso % (Auto) 0.6 Absolute Neuts (auto) 7.0 Absolute Lymphs (auto) 1.27 Total Counted Not Reportable Sodium 142 Potassium 4.3 Chloride 109 H Carbon Dioxide 22.0 Anion Gap 11 BUN 22 H Creatinine 1.69 H Estim Creat Clear Calc 44.00 Est GFR (MDRD) Af Amer 52 L Est GFR (MDRD) Non-Af 43 L BUN/Creatinine Ratio 13.0 Glucose 105 Lactic Acid Calcium 7.2 L Total Creatine Kinase 756 H Troponin I TSH Urine Color Urine Clarity Urine pH Ur Specific [place] Urine Protein Urine Glucose (UA) Urine Ketones Urine Occult Blood Urine Nitrite Urine Bilirubin Urine Urobilinogen Ur Leukocyte Esterase Urine RBC Urine WBC Ur Squamous Epith Cells Urine Bacteria Urine Mucus Urine Opiates Screen Urine Methadone Screen Ur Barbiturates Screen Ur Phencyclidine Scrn Ur Amphetamines Screen U Methamphetamin-MDMA U Benzodiazepines Scrn Urine Cocaine Screen U Cannabinoids Screen Ur Drug Screen Comment POC Glucose 04/01/18 04/01/18 04/01/18 12:44 07:00 03:46 POC Glucose 269 H 109 116 H 03/31/18 03/31/18 03/31/18 23:05 20:08 17:29 POC Glucose 128 H 129 H 66 L Code Visit Addendum: Dr. Lou I personally examined the patient and reviewed the chart. I agree with the above. 72-year-old male with past medical history of lung cancer, CAD status post stents, diabetes and PE who was admitted to the ER on 03/31/2018 with complaint of a syncopal episode. He lives in [place] was driving to [place] for the week and with his . He stopped at a gas station and he said that his wallet dropped to the floor as he bent over to pick it up he passed out. His states that while on the ground he had a seizure that only involved his upper extremities. She states that it lasted for about a minute and he had postictal drowsiness afterwards with confusion and tongue biting but did not have any fecal urinary incontinence. Neurology was consulted who recommending initiating Keppra. Plan was for an EEG tomorrow however because of his elevated troponin which could be due to the seizure though given his previous coronary artery disease cardiology was consulted and and felt that it would be prudent to do cardiac cath, family has requested that he be transferred to the [facility] tomorrow morning. We discussed transfer tonight however family does not want to be driving in the dark. We also discussed that if he had a cardiac cath here as well as the EEG he could possibly be discharged home tomorrow afternoon if everything was normal and that if they were transferred to an outside hospital then the workup with start from the beginning and his discharge would be delayed another couple of days. Inpatient E&M: 80297 Subs Hosp L2
--- NOTE | 2018-04-01 13:20 | PCM.CONS.C ---
Problem List (1) Coronary artery disease Status: Acute (2) Non-STEMI (non-ST elevated myocardial infarction) Status: Acute (3) DVT (deep venous thrombosis) Status: Acute (4) Pulmonary embolism Status: Acute (5) Syncope Status: Acute Reason for Consult Date of Consultation: 04/01/18 Reason for Consultation: Coronary artery disease, non-STEMI, syncope, DVT, pulmonary embolism, diabetes, COPD, obstructive sleep apnea, status post small cell lung cancer History of Present Illness: The patient is a 72 year old M, with diabetes, COPD on chronic O2 therapy, psoriatic arthritis, obstructive sleep apnea who is compliant with his CPAP, status post diagnosis of small cell lung cancer stage III approximately 1-1/2 years ago with chemotherapy and x-ray therapy only. Currently in remission and is followed at the [facility]. In addition the patient has a history of coronary artery disease status post angioplasty and stenting x2 to the left circumflex, followed by angioplasty and stenting x1 to the diagonal branch in 2012, both of which took place at hospitals in [facility] The and his came to visit [facility], and apparently yesterday his low tire indicator came on. The patient went to a local gas station when he got out of his car he dropped his wall at to pay for the air. When he went down to pick it up and then stand up he developed apparently loss of consciousness, and fell backwards onto the grass. He was found by his to be cyanotic, moaning, and had seizure-like activity. She rushed to get his oxygen in the car and put it on him with improvement of his cyanosis. Apparently he bit his tongue as well and had minor bleeding. EMS was called and he was brought to the emergency room where an EKG was performed which showed normal sinus rhythm with lateral T wave inversion. No old EKGs are available. He denied any chest pain. Apparently recently has been taken off his aspirin but does remain on Plavix and Xarelto for a DVT and pulmonary embolism in February 2017. The patient underwent a CT scan which showed no acute changes, MRI is pending. His initial troponin was 0.19, and increased to 8.4. Telemetry he has remained in normal sinus rhythm. EKG this morning shows normal sinus rhythm with lateral T wave changes and ST segment depression in the lateral leads. [] Past Medical History Allergies/Adverse Reactions: Allergies Penicillins Allergy (Verified 03/31/18 11:20) Other Sulfa (Sulfonamide Antibiotics) Allergy (Verified 03/31/18 11:20) Rash Home Medications: Ambulatory Orders Medication Instructions Recorded Albuterol Aerosols [Ventolin 2.5 mg INHALATION TID 03/31/18 Aerosols] Aspirin [Aspirin, Baby] 81 mg PO DAILY@0800 03/31/18 Calcium Citrate 200 mg PO BID 03/31/18 Clopidogrel Bisulfate [Plavix] 75 mg PO DAILY 03/31/18 Docusate Sodium [Colace] 100 mg PO DAILY 03/31/18 Etanercept [Enbrel] 25 mg SQ FR 03/31/18 Ezetimibe [Zetia] 10 mg PO DAILY 03/31/18 Fenofibrate Nanocrystallized 160 mg PO DAILY 03/31/18 [Triglide] Fluticasone/Vilanterol [Breo 1 each IH BID 03/31/18 Ellipta 200-25 Mcg INH] Furosemide [Lasix] 20 mg PO DAILY 03/31/18 Gabapentin [Neurontin] 300 mg PO BID 03/31/18 Humalog 60 unit SQ BID 03/31/18 Insulin Lispro [Humalog] unit SQ .COMPLEX 03/31/18 Ipratropium/Albuterol Sulfate 3 ml INHALATION TID 03/31/18 [Duoneb] L.acidoph,Paracasei, B.lactis 1 capsule PO DAILY 03/31/18 [Probiotic] Multivitamin [Multiple Vitamins] 1 each PO DAILY 03/31/18 Niacin 500 mg PO DAILY 03/31/18 [place]-3/Dha/Epa/Fish Oil [[place] 3 1 each PO DAILY 03/31/18 500 Softgel] Pravastatin [Pravachol] 40 mg PO DAILY 03/31/18 Rivaroxaban [Xarelto] 20 mg PO DAILY 03/31/18 Tiotropium [place] [Spiriva] 18 mcg IH DAILY 03/31/18 Vitamin B Complex/Folic Acid 0.4 mg PO DAILY 03/31/18 [Super B Maxi Complex Caplet] Vitamin C 1,000 mg PO DAILY 03/31/18 Surgical History: - Psychiatric History: No pertinent psych hx - *Family History Maternal History Items: Hypertension Paternal History Items: No pertinent history Lives: Spouse/ Significant Other Smoking Status: Former smoker Alcohol: Occasional Review of Systems - Review of Systems General: Denies: Fever, Night Sweats, Fatigue Cardiovascular: Reports: Syncope. Denies: Chest Discomfort, Shortness of Breath, Orthopnea, PND, Peripheral Edema, Palpitations, Lightheadedness, Dizziness, Near Syncope Respiratory: Denies: Cough, Sputum Production, Hemoptysis Gastrointestinal: Denies: Hematemesis, Hematochezia, Melena Genitourinary: Denies: Dysuria, Hematuria Skin: Denies: Rash Subjectve: Patient resting comfortably, no acute distress. Objective: Vital Signs Temp Pulse Resp BP Pulse Ox 98.7 F 94 20 H 125/56 H 95 04/01/18 09:50 04/01/18 10:56 04/01/18 09:50 04/01/18 09:50 04/01/18 09:50 Oxygen Flow Rate (L/min) 2 Oxygen Delivery Method Nasal Cannula Weight: 275 lb Body Mass Index (BMI) 37.3 Finger Stick Blood Glucose 85 Intake and Output for Last 24 Hours 03/30/18 03/31/18 04/01/18 23:59 23:59 23:59 Intake Total 600 / 600 3489 / 3489 Output Total 1225 / 1225 Balance 600 / 600 2264 / 2264 General: Awake, Alert, Oriented x 3 HEENT: PERRL, EOMI, Sclera Non Icteric Neck: Supple, Good ROM, No Lymph Node Enlargement Lungs: Clear to auscultation Cardiovascular: Regular Rhythm, Normal S1, Normal S2, No Murmurs, No Rubs, No Gallops Vascular: No Carotid Bruits, Normal Femoral Pulses, Normal Radial Pulses, Normal Dorsalis Pedal Pulse, Normal Posterior Tibial Pulses Abdomen: Bowel Sounds Present, Soft, Non Tender, No HSM, No Organomegaly Extremities: No Cyanosis, No Clubbing, No edema Neurological: No Focal Motor or Sensory Deficit 03/31/18 16:35: Lactic Acid 0.9 03/31/18 16:55: Troponin I 4.880 H* 03/31/18 19:55: Troponin I 8.400 H* 03/31/18 22:43: Urine Color Yellow, Urine Clarity Sl. Cloudy, Urine pH 5.0, Ur Specific [place] 1.015, Urine Protein 30 H, Urine Glucose (UA) Normal, Urine Ketones Negative, Urine Occult Blood Negative, Urine Nitrite Negative, Urine Bilirubin Negative, Urine Urobilinogen Normal, Ur Leukocyte Esterase Negative, Urine RBC 0 SEEN, Urine WBC 0 SEEN 04/01/18 06:25: WBC 10.0, RBC 4.39 L, Hgb 13.7, Hct 41.6, MCV 94.8 H, MCH 31.2, MCHC 32.9, RDW 14.2, RDW Differential 48.9 H, Plt Count 222, MPV 8.9, Immature Gran % (Auto) 0.100, Neut % (Auto) 70.2 H, Lymph % (Auto) 12.6 L, [place] % (Auto) 14.9 H, Eos % (Auto) 1.6, Baso % (Auto) 0.6, Absolute Neuts (auto) 7.0, Total Counted Not Reportable 04/01/18 06:25: Sodium 142, Potassium 4.3, Chloride 109 H, Carbon Dioxide 22.0, Anion Gap 11, BUN 22 H, Creatinine 1.69 H, Est GFR (MDRD) Af Amer 52 L, Est GFR (MDRD) Non-Af 43 L, BUN/Creatinine Ratio 13.0, Glucose 105, Calcium 7.2 L Rhythm: EKG: As above ECHO: Pending Stress Test: Cardiac Cath: Pending PCI: CT Surgery: Holter monitor: EPS: PPM: CXR: Chest CT Scan: Assessment/Plan 1. Coronary artery disease: Although the patient had no exertional anginal symptoms, he apparently did have a syncopal episode possibly positional in nature, with associated abnormal troponins, and dynamic EKG changes. I recommend the patient continue Plavix and be reloaded with baby aspirin, and hold his Xarelto. His MRI of his brain was negative for metastatic process or acute injury. Given his abnormal troponins and known coronary disease I recommend that he undergo a diagnostic coronary angiogram tomorrow morning to determine if he has any reversible coronary stenoses that may benefit from repeat stenting. Patient has known stenting in 2010 x 2 to his left circumflex as well as stenting x1 to the diagonal branch, either 1 of which may be inducing the patient's EKG changes and abnormal troponins. The patient has no significant correctable coronary disease that I would recommend medical management going forward with baby aspirin and Plavix given his non-STEMI. Would recommend obtaining old records from his hospitals in [place] if possible. In addition I recommend the patient undergo a 2D echo with Doppler to document his LV function, valvular status, and pulmonary pressures. 2. DVT/PE: The patient may require triple anticoagulant type therapy including baby aspirin, Plavix, and resumption of Xarelto with respect to his groin given his history of lung cancer, hypercoagulable state, and previous DVT PE. 3. Hyperlipidemia: Continue ezetimibe niacin and fenofibrate. Recommend obtaining a fasting lipid profile. 4. Small cell lung cancer: Apparently this is in remission and he is followed at the [facility]. No plans for surgery or repeat chemotherapy or x-ray therapy at this time. 5. Obstructive sleep apnea: The patient will continue chronic O2 therapy for COPD and SCOT as well as CPAP in the evening. No changes needed at this time. 6. Thank you very much for the opportunity to participate in the cardiac care of your patient. Consultation took place between 11 and 11:35 AM. Code Visit Inpatient E&M: 39906 Init Hosp L2
--- NOTE | 2018-04-01 13:25 | CON.PCM_ITS ---
Problem List (1) Coronary artery disease Status: Acute (2) Non-STEMI (non-ST elevated myocardial infarction) Status: Acute (3) DVT (deep venous thrombosis) Status: Acute (4) Pulmonary embolism Status: Acute (5) Syncope Status: Acute Reason for Consult Date of Consultation: 04/01/18 Reason for Consultation: Coronary artery disease, non-STEMI, syncope, DVT, pulmonary embolism, diabetes, COPD, obstructive sleep apnea, status post small cell lung cancer History of Present Illness: The patient is a 72 year old M, with diabetes, COPD on chronic O2 therapy, psoriatic arthritis, obstructive sleep apnea who is compliant with his CPAP, status post diagnosis of small cell lung cancer stage III approximately 1-1/2 years ago with chemotherapy and x-ray therapy only. Currently in remission and is followed at the [facility]. In addition the patient has a history of coronary artery disease status post angioplasty and stenting x2 to the left circumflex, followed by angioplasty and stenting x1 to the diagonal branch in 2012, both of which took place at [facility] in [facility]. The and his came to visit [facility], and apparently yesterday his low tire indicator came on. The patient went to a local gas station when he got out of his car he dropped his wall at to pay for the air. When he went down to pick it up and then stand up he developed apparently loss of consciousness, and fell backwards onto the grass. He was found by his to be cyanotic, moaning, and had seizure-like activity. She rushed to get his oxygen in the car and put it on him with improvement of his cyanosis. Apparently he bit his tongue as well and had minor bleeding. EMS was called and he was brought to the emergency room where an EKG was performed which showed normal sinus rhythm with lateral T wave inversion. No old EKGs are available. He denied any chest pain. Apparently recently has been taken off his aspirin but does remain on Plavix and Xarelto for a DVT and pulmonary embolism in February 2017. The patient underwent a CT scan which showed no acute changes, MRI is pending. His initial troponin was 0.19, and increased to 8.4. Telemetry he has remained in normal sinus rhythm. EKG this morning shows normal sinus rhythm with lateral T wave changes and ST segment depression in the lateral leads. [] Past Medical History Allergies/Adverse Reactions: Allergies Penicillins Allergy (Verified 10/27/18 11:20) Other Sulfa (Sulfonamide Antibiotics) Allergy (Verified 03/31/18 11:20) Rash Home Medications: Ambulatory Orders Medication Instructions Recorded Albuterol Aerosols [Ventolin 2.5 mg INHALATION TID 03/31/18 Aerosols] Aspirin [Aspirin, Baby] 81 mg PO DAILY@0800 03/31/18 Calcium Citrate 200 mg PO BID 03/31/18 Clopidogrel Bisulfate [Plavix] 75 mg PO DAILY 03/31/18 Docusate Sodium [Colace] 100 mg PO DAILY 03/31/18 Etanercept [Enbrel] 25 mg SQ FR 03/31/18 Ezetimibe [Zetia] 10 mg PO DAILY 03/31/18 Fenofibrate Nanocrystallized 160 mg PO DAILY 03/31/18 [Triglide] Fluticasone/Vilanterol [Breo 1 each IH BID 03/31/18 Ellipta 200-25 Mcg INH] Furosemide [Lasix] 20 mg PO DAILY 03/31/18 Gabapentin [Neurontin] 300 mg PO BID 03/31/18 Humalog 60 unit SQ BID 03/31/18 Insulin Lispro [Humalog] unit SQ .COMPLEX 03/31/18 Ipratropium/Albuterol Sulfate 3 ml INHALATION TID 03/31/18 [Duoneb] L.acidoph,Paracasei, B.lactis 1 capsule PO DAILY 03/31/18 [Probiotic] Multivitamin [Multiple Vitamins] 1 each PO DAILY 03/31/18 Niacin 500 mg PO DAILY 03/31/18 [place]-3/Dha/Epa/Fish Oil [[place] 3 1 each PO DAILY 03/31/18 500 Softgel] Pravastatin [Pravachol] 40 mg PO DAILY 03/31/18 Rivaroxaban [Xarelto] 20 mg PO DAILY 03/31/18 Tiotropium [place] [Spiriva] 18 mcg IH DAILY 03/31/18 Vitamin B Complex/Folic Acid 0.4 mg PO DAILY 03/31/18 [Super B Maxi Complex Caplet] Vitamin C 1,000 mg PO DAILY 03/31/18 Surgical History: - Psychiatric History: No pertinent psych hx - *Family History Maternal History Items: Hypertension Paternal History Items: No pertinent history Lives: Spouse/ Significant Other Smoking Status: Former smoker Alcohol: Occasional Review of Systems - Review of Systems General: Denies: Fever, Night Sweats, Fatigue Cardiovascular: Reports: Syncope. Denies: Chest Discomfort, Shortness of Breath, Orthopnea, PND, Peripheral Edema, Palpitations, Lightheadedness, Dizziness, Near Syncope Respiratory: Denies: Cough, Sputum Production, Hemoptysis Gastrointestinal: Denies: Hematemesis, Hematochezia, Melena Genitourinary: Denies: Dysuria, Hematuria Skin: Denies: Rash Subjectve: Patient resting comfortably, no acute distress. Objective: Vital Signs Temp Pulse Resp BP Pulse Ox 98.7 F 94 20 H 125/56 H 95 04/01/18 09:50 04/01/18 10:56 04/01/18 09:50 04/01/18 09:50 04/01/18 09:50 Oxygen Flow Rate (L/min) 2 Oxygen Delivery Method Nasal Cannula Weight: 275 lb Body Mass Index (BMI) 37.3 Finger Stick Blood Glucose 85 Intake and Output for Last 24 Hours 03/30/18 03/31/18 04/01/18 23:59 23:59 23:59 Intake Total 600 / 600 3489 / 3489 Output Total 1225 / 1225 Balance 600 / 600 2264 / 2264 General: Awake, Alert, Oriented x 3 HEENT: PERRL, EOMI, Sclera Non Icteric Neck: Supple, Good ROM, No Lymph Node Enlargement Lungs: Clear to auscultation Cardiovascular: Regular Rhythm, Normal S1, Normal S2, No Murmurs, No Rubs, No Gallops Vascular: No Carotid Bruits, Normal Femoral Pulses, Normal Radial Pulses, Normal Dorsalis Pedal Pulse, Normal Posterior Tibial Pulses Abdomen: Bowel Sounds Present, Soft, Non Tender, No HSM, No Organomegaly Extremities: No Cyanosis, No Clubbing, No edema Neurological: No Focal Motor or Sensory Deficit 03/31/18 16:35: Lactic Acid 0.9 03/31/18 16:55: Troponin I 4.880 H* 03/31/18 19:55: Troponin I 8.400 H* 03/31/18 22:43: Urine Color Yellow, Urine Clarity Sl. Cloudy, Urine pH 5.0, Ur Specific [place] 1.015, Urine Protein 30 H, Urine Glucose (UA) Normal, Urine Ketones Negative, Urine Occult Blood Negative, Urine Nitrite Negative, Urine Bilirubin Negative, Urine Urobilinogen Normal, Ur Leukocyte Esterase Negative, Urine RBC 0 SEEN, Urine WBC 0 SEEN 04/01/18 06:25: WBC 10.0, RBC 4.39 L, Hgb 13.7, Hct 41.6, MCV 94.8 H, MCH 31.2, MCHC 32.9, RDW 14.2, RDW Differential 48.9 H, Plt Count 222, MPV 8.9, Immature Gran % (Auto) 0.100, Neut % (Auto) 70.2 H, Lymph % (Auto) 12.6 L, [place] % (Auto) 14.9 H, Eos % (Auto) 1.6, Baso % (Auto) 0.6, Absolute Neuts (auto) 7.0, Total Counted Not Reportable 04/01/18 06:25: Sodium 142, Potassium 4.3, Chloride 109 H, Carbon Dioxide 22.0, Anion Gap 11, BUN 22 H, Creatinine 1.69 H, Est GFR (MDRD) Af Amer 52 L, Est GFR (MDRD) Non-Af 43 L, BUN/Creatinine Ratio 13.0, Glucose 105, Calcium 7.2 L Rhythm: EKG: As above ECHO: Pending Stress Test: Cardiac Cath: Pending PCI: CT Surgery: Holter monitor: EPS: PPM: CXR: Chest CT Scan: Assessment/Plan 1. Coronary artery disease: Although the patient had no exertional anginal symptoms, he apparently did have a syncopal episode possibly positional in nature, with associated abnormal troponins, and dynamic EKG changes. I recommend the patient continue Plavix and be reloaded with baby aspirin, and ho ld his Xarelto. His MRI of his brain was negative for metastatic process or acute injury. Given his abnormal troponins and known coronary disease I recommend that he undergo a diagnostic coronary angiogram tomorrow morning to determine if he has any reversible coronary stenoses that may benefit from repeat stenting. Patient has known stenting in 2010 x 2 to his left circumflex as well as stenting x1 to the diagonal branch, either 1 of which may be inducing the patient's EKG changes and abnormal troponins. The patient has no significant correctable coronary disease that I would recommend medical management going forward with baby aspirin and Plavix given his non-STEMI. Would recommend obtaining old records from his hospitals in [place] if possible. In addition I recommend the patient undergo a 2D echo with Doppler to document his LV function, valvular status, and pulmonary pressures. 2. DVT/PE: The patient may require triple anticoagulant type therapy including baby aspirin, Plavix, and resumption of Xarelto with respect to his groin given his history of lung cancer, hypercoagulable state, and previous DVT PE. 3. Hyperlipidemia: Continue ezetimibe niacin and fenofibrate. Recommend obtaining a fasting lipid profile. 4. Small cell lung cancer: Apparently this is in remission and he is followed at the [facility]. No plans for surgery or repeat chemotherapy or x-ray therapy at this time. 5. Obstructive sleep apnea: The patient will continue chronic O2 therapy for COPD and SCOT as well as CPAP in the evening. No changes needed at this time. 6. Thank you very much for the opportunity to participate in the cardiac care of your patient. Consultation took place between 11 and 11:35 AM. Code Visit Inpatient E&M: 42505 Init Hosp L2
--- NOTE | 2018-04-01 15:23 | CASEMGMT ---
JADEN ALLEN NOTE: Call received from Freddie Garcia RN, inquiring of cost of transportation services for pt to be transferred from [facility] to another hospital per pt's request for heart cath procedure. Radha advised to contact the transportation service being used, to inform them of pt's insurance which is [facility] M[employer], and ask them to run pt's insurance to determine pt's [id number] cost. Jim JORDAN RN CM
[2018-04-01 17:36] LABS: Bedside Glucose 300 mg/dL (70-110)
--- NOTE | 2018-04-01 20:44 | NURSING ---
PATIENT IS REFUSING TO GET PREPPED OR HAVE HEART CATHETERIZATION AT THIS HOSPITAL. WAS TOLD BY [facility]SHIFT RN THAT DOCTOR'S ARE AWARE OF THIS AND CM IS TO BE CHECKING ON TRANSFER IN THE MORNING.
[2018-04-01] MEDS: levETIRAcetam 500 MG Tablet PO (21:35)
[2018-04-01] MEDS: BMX LIQUID 180 ML PO (21:35)
[2018-04-01 22:11] LABS: Bedside Glucose 273 mg/dL (70-110)
[2018-04-02] VITALS (9 sets, daily range): BP systolic 144–158; BP diastolic 65–84; PULSE 58–90; RESP 16–19; TEMP 36.5–36.9; O2SAT 94–98
[2018-04-02] MEDS: 0.9% Normal Saline 1,000 ML 150 ML IV ×3 (03:54→15:39)
[2018-04-02] MEDS: BMX LIQUID 180 ML PO ×3 (06:06→15:38)
[2018-04-02 06:34] LABS: Anion Gap 8 (5-15); BUN 18 mg/dL (7-18); BUN/Creat Ratio 14.6 RATIO (10-20); Calcium,Total 7.2 mg/dL (8.5-10.1); Chloride 110 mmol/L (98-107); Creatinine, Serum 1.23 mg/dL (0.70-1.30); EST Glomerular Filtration Rate 62 mL/min (>60); Est Glom Filt Rate - Afr Amer 75 mL/min (>60); Estimated Creatinine Clearance 60.46 ml/min; Glucose 51 mg/dL (74-106); Sodium Level 145 mmol/L (136-145)
[2018-04-02 07:51] LABS: Bedside Glucose 81 mg/dL (70-110)
[2018-04-02] MEDS: Aspirin 81 MG TAB.CHEW PO (09:02)
[2018-04-02] MEDS: Ascorbic Acid 500 MG Tablet 1000 MG PO (09:03)
[2018-04-02] MEDS: Gabapentin 300 MG Capsule PO (09:03)
[2018-04-02] MEDS: Calcium (Elemental) 500 MG Tablet PO (09:03)
[2018-04-02] MEDS: Multivitamins,Therapeutic Tablet 1 TABLET PO (09:03)
[2018-04-02] MEDS: Docusate Sodium 100 MG Capsule PO (09:04)
[2018-04-02] MEDS: levETIRAcetam 500 MG Tablet PO (09:05)
[2018-04-02] MEDS: Niacin SA 500 MG Tablet PO (09:05)
[2018-04-02] MEDS: Furosemide 20 MG Tablet PO (09:05)
[2018-04-02] MEDS: Clopidogrel Bisulfate 75 MG Tablet PO (09:05)
[2018-04-02] MEDS: Fenofibrate 145 MG Tablet PO (09:06)
[2018-04-02] MEDS: Ezetimibe 10 MG Tablet PO (09:06)
[2018-04-02] MEDS: Pravastatin 40 MG Tablet PO (09:06)
[2018-04-02 10:20] LABS: Bedside Glucose 50 mg/dL (70-110)
[2018-04-02 10:20] LABS: Bedside Glucose 72 mg/dL (70-110)
--- NOTE | 2018-04-02 10:53 | CASEMGMT ---
Addendum entered by John Medel 04/02/18 12:16: came into room, JADEN ALLEN introduced role and discussed their request to transfer to [facility] in [place]. Pt and discussed and are agreed to transfer via ambulance with anticipated cost of $950.00 to be paid up front (credit card accepted by [facility]). Per [facility]- can call with credit card information once transfer is set up. -Subha Singh NP and New STANLEY updated. -Call to [facility] Transfer line. Information given requesting Progressive Care/Cardiac telemetry bed. Phone # for [facility] PCU unit and Subha Singh NP given to mailroom coordinator. [place] [facility] @ [address] [place] [address] PHONE: [phone] Original Note: JADEN ALLEN Assessment Intro role of CM to patient. Pt presented to ER after syncopal episode @ [employer] [place]. NSTEMI, troponins 4.880/8.4. PCP: out of town doctor, in [place], [place] Prescription coverage: yes Pharmacy: [facility] on [address] in [place], [place] Transportation: pt drives, also able to drive if needed. * Pt is referred by cardiology for heart cath. Pt would like to transfer to [facility] in [place]. Cost of ALS transport per [facility] would be $950.00 paid up front. Discussed with patient who states he will not pay for ambulance, but will have his drive him in his truck to [place]. JADEN ALLEN expressed concern re: medical condition and this is not recommended by physicians. Pt states he will not go via ambulance. is not available at this time. -JUAN CARLOS Mascorro updated. States pt will need to sign out AMA if he decides to discharge and have his drive. - Ivet Metzger RN, CM updated. Oscar JORDAN RN ACM
--- NOTE | 2018-04-02 11:35 | PCM.CONS.GEN ---
Reason for Consult Date of Consultation: 04/02/18 History of Present Illness: The patient is a 72 year old M suffered first ever sz witnessed by , fell at air pump, then saw him convulse for a few minutes, then abnormal cognition for one to two hours. history of small cell lung ca. reports brio-incluse, spiriva both new over past several weeks. feeling well otherwise, no sleep deprivation. history of dvt on xarelto at home. per admit h&p:The patient is a 72 year old M with past medical history of lung cancer, CAD status post stents, diabetes and PE. He was admitted through the ED on 03/31/2018 with complaint of a syncopal episode. Patient lives in the [place] area and was driving to [place] for the weekend with his . He stopped at a gas station to put some air in his tire and he states his wallet dropped on the floor. As he bent over to pick it up he passed out and slumped to the floor. According to his , he was still alert when she told him to lay on the floor and she would come help him. However by the time she got warm difficult to aside, patient was having a seizure which she says involved only his upper extremities. She states it lasted for about a minute and he had postictal drowsiness, and confusion and tongue biting but did not have any fecal or urinary incontinence. She called the squad and in the ambulance, EKG done showed A. fib. He does not have a history of A. fib and has never had a seizure before. He was recently given the all clear about his lung cancer after he had a PET scan in several CT scans. He has had chemotherapy and radiation for the lung cancer which was diagnosed back in 2017 and was being followed up in [place]. He denied any headache, blurred vision, fever or chills, chest pain, abdominal pain, diarrhea vomiting. He also had no palpitations. The ED, vitals were initially significant for heart rate of 11, but was otherwise unremarkable. Chemistry was significant for creatinine of 1.43 and lactic acid of 8.6. Initial troponin was 0.149. CBC showed white cell count of 12.7, and brain CT showed no acute intracranial process. EKG repeated in the ED showed sinus tachycardia. He is been admitted to be managed for new onset seizure in a patient with known lung cancer, lactic acidosis likely due to seizure and new onset A. fib. Past Medical History Allergies Penicillins Allergy (Verified 03/31/18 11:20) Other Sulfa (Sulfonamide Antibiotics) Allergy (Verified 03/31/18 11:20) Rash Home Medications: Ambulatory Orders Medication Instructions Recorded Albuterol Aerosols [Ventolin 2.5 mg INHALATION TID 03/31/18 Aerosols] Aspirin [Aspirin, Baby] 81 mg PO DAILY@0800 03/31/18 Calcium Citrate 200 mg PO BID 03/31/18 Clopidogrel Bisulfate [Plavix] 75 mg PO DAILY 03/31/18 Docusate Sodium [Colace] 100 mg PO DAILY 03/31/18 Etanercept [Enbrel] 25 mg SQ FR 03/31/18 Ezetimibe [Zetia] 10 mg PO DAILY 03/31/18 Fenofibrate Nanocrystallized 160 mg PO DAILY 03/31/18 [Triglide] Fluticasone/Vilanterol [Breo 1 each IH BID 03/31/18 Ellipta 200-25 Mcg INH] Furosemide [Lasix] 20 mg PO DAILY 03/31/18 Gabapentin [Neurontin] 300 mg PO BID 03/31/18 Humalog 60 unit SQ BID 03/31/18 Insulin Lispro [Humalog] unit SQ .COMPLEX 03/31/18 Ipratropium/Albuterol Sulfate 3 ml INHALATION TID 03/31/18 [Duoneb] L.acidoph,Paracasei, B.lactis 1 capsule PO DAILY 03/31/18 [Probiotic] Multivitamin [Multiple Vitamins] 1 each PO DAILY 03/31/18 Niacin 500 mg PO DAILY 03/31/18 [place]-3/Dha/Epa/Fish Oil [[place] 3 1 each PO DAILY 03/31/18 500 Softgel] Pravastatin [Pravachol] 40 mg PO DAILY 03/31/18 Rivaroxaban [Xarelto] 20 mg PO DAILY 03/31/18 Tiotropium [place] [Spiriva] 18 mcg IH DAILY 03/31/18 Vitamin B Complex/Folic Acid 0.4 mg PO DAILY 03/31/18 [Super B Maxi Complex Caplet] Vitamin C 1,000 mg PO DAILY 03/31/18 Surgical History: - Psychiatric History: No pertinent psych hx Lives: Spouse/ Significant Other Smoking Status: Former smoker Alcohol: Occasional - *Family History Maternal History Items: Hypertension Paternal History Items: No pertinent history Patient Problems: Active and Suspected Problems Syncope (Acute) Seizure (Acute) Coronary artery disease (Acute) Non-STEMI (non-ST elevated myocardial infarction) (Acute) DVT (deep venous thrombosis) (Acute) Pulmonary embolism (Acute) - Physical Exam General: Alert, Oriented x3, Cooperative, No apparent distress HEENT: Atraumatic Neurological: Cranial nerves II-XII grossly intact, - - + tongue ecchhymosis Psych/Mental Status: Normal Affect Vital Signs Temp Pulse Resp BP Pulse Ox 36.5 C L 84 17 152/77 H 98 04/02/18 08:10 04/02/18 11:01 04/02/18 08:10 04/02/18 08:10 04/02/18 08:10 Oxygen Flow Rate (L/min) 2 Oxygen Delivery Method Nasal Cannula Weight: 124.738 kg Body Mass Index (BMI) 37.3 Finger Stick Blood Glucose 85 Intake and Output for Last 24 Hours 03/31/18 04/01/18 04/02/18 23:59 23:59 23:59 Intake Total 600 / 600 4665 / 4665 1938 Output Total 1225 / 1225 Balance 600 / 600 3440 / 3440 1938 Laboratory Tests Past 24 Hrs 04/02/18 05:55 Sodium 145 Potassium 4.0 Chloride 110 H Carbon Dioxide 27.0 Anion Gap 8 BUN 18 Creatinine 1.23 Estim Creat Clear Calc 60.46 Est GFR (MDRD) Af Amer 75 Est GFR (MDRD) Non-Af 62 BUN/Creatinine Ratio 14.6 Glucose 51 L Calcium 7.2 L POC Glucose 04/02/18 04/02/18 04/02/18 07:47 07:20 06:52 POC Glucose 81 72 50 L 04/01/18 04/01/18 04/01/18 21:31 17:06 12:44 POC Glucose 273 H 300 H 269 H mri reviewed, no acute Assessment/Plan All Active Problems Syncope (Acute) Seizure (Acute) Coronary artery disease (Acute) Non-STEMI (non-ST elevated myocardial infarction) (Acute) DVT (deep venous thrombosis) (Acute) Pulmonary embolism (Acute) a/p 1st seizure, history of small cell lung ca mri negative for mets but remains concern keppra 500mg bid no driving fu with oncology in [place] will need followup mri 6weeks to surveil for mets
--- NOTE | 2018-04-02 11:41 | CON.PCM_ITS ---
Reason for Consult Date of Consultation: 04/02/18 History of Present Illness: The patient is a 72 year old M suffered first ever sz witnessed by , fell at air pump, then saw him convulse for a few minutes, then abnormal cognition for one to two hours. history of small cell lung ca. reports brio-incluse, spiriva both new over past several weeks. feeling well otherwise, no sleep deprivation. history of dvt on xarelto at home. per admit h&p:The patient is a 72 year old M with past medical history of lung cancer, CAD status post stents, diabetes and PE. He was admitted through the ED on 03/31/2018 with complaint of a syncopal episode. Patient lives in the [place] area and was driving to [place] for the weekend with his . He stopped at a gas station to put some air in his tire and he states his wallet dropped on the floor. As he bent over to pick it up he passed out and slumped to the floor. According to his , he was still alert when she told him to lay on the floor and she would come help him. However by the time she got warm difficult to aside, patient was having a seizure which she says involved only his upper extremities. She states it lasted for about a minute and he had postictal drowsiness, and confusion and tongue biting but did not have any fecal or urinary incontinence. She called the squad and in the ambulance, EKG done showed A. fib. He does not have a history of A. fib and has never had a seizure before. He was recently given the all clear about his lung cancer after he had a PET scan in several CT scans. He has had chemotherapy and radiation for the lung cancer which was diagnosed back in 2017 and was being followed up in [place]. He denied any headache, blurred vision, fever or chills, chest pain, abdominal pain, diarrhea vomiting. He also had no palpitations. The ED, vitals were initially significant for heart rate of 11, but was otherwise unremarkable. Chemistry was significant for creatinine of 1.43 and lactic acid of 8.6. Initial troponin was 0.149. CBC showed white cell count of 12.7, and brain CT showed no acute intracranial process. EKG repeated in the ED showed sinus tachycardia. He is been admitted to be managed for new onset seizure in a patient with known lung cancer, lactic acidosis likely due to seizure and new onset A. fib. Past Medical History Allergies Penicillins Allergy (Verified 03/31/18 11:20) Other Sulfa (Sulfonamide Antibiotics) Allergy (Verified 03/31/18 11:20) Rash Home Medications: Ambulatory Orders Medication Instructions Recorded Albuterol Aerosols [Ventolin 2.5 mg INHALATION TID 03/31/18 Aerosols] Aspirin [Aspirin, Baby] 81 mg PO DAILY@0800 03/31/18 Calcium Citrate 200 mg PO BID 03/31/18 Clopidogrel Bisulfate [Plavix] 75 mg PO DAILY 03/31/18 Docusate Sodium [Colace] 100 mg PO DAILY 03/31/18 Etanercept [Enbrel] 25 mg SQ FR 03/31/18 Ezetimibe [Zetia] 10 mg PO DAILY 03/31/18 Fenofibrate Nanocrystallized 160 mg PO DAILY 03/31/18 [Triglide] Fluticasone/Vilanterol [Breo 1 each IH BID 03/31/18 Ellipta 200-25 Mcg INH] Furosemide [Lasix] 20 mg PO DAILY 03/31/18 Gabapentin [Neurontin] 300 mg PO BID 03/31/18 Humalog 60 unit SQ BID 03/31/18 Insulin Lispro [Humalog] unit SQ .COMPLEX 03/31/18 Ipratropium/Albuterol Sulfate 3 ml INHALATION TID 03/31/18 [Duoneb] L.acidoph,Paracasei, B.lactis 1 capsule PO DAILY 03/31/18 [Probiotic] Multivitamin [Multiple Vitamins] 1 each PO DAILY 03/31/18 Niacin 500 mg PO DAILY 03/31/18 [place]-3/Dha/Epa/Fish Oil [[place] 3 1 each PO DAILY 03/31/18 500 Softgel] Pravastatin [Pravachol] 40 mg PO DAILY 03/31/18 Rivaroxaban [Xarelto] 20 mg PO DAILY 03/31/18 Tiotropium [place] [Spiriva] 18 mcg IH DAILY 03/31/18 Vitamin B Complex/Folic Acid 0.4 mg PO DAILY 03/31/18 [Super B Maxi Complex Caplet] Vitamin C 1,000 mg PO DAILY 03/31/18 Surgical History: - Psychiatric History: No pertinent psych hx Lives: Spouse/ Significant Other Smoking Status: Former smoker Alcohol: Occasional - *Family History Maternal History Items: Hypertension Paternal History Items: No pertinent history Patient Problems: Active and Suspected Problems Syncope (Acute) Seizure (Acute) Coronary artery disease (Acute) Non-STEMI (non-ST elevated myocardial infarction) (Acute) DVT (deep venous thrombosis) (Acute) Pulmonary embolism (Acute) - Physical Exam General: Alert, Oriented x3, Cooperative, No apparent distress HEENT: Atraumatic Neurological: Cranial nerves II-XII grossly intact, - - + tongue ecchhymosis Psych/Mental Status: Normal Affect Vital Signs Temp Pulse Resp BP Pulse Ox 36.5 C L 84 17 152/77 H 98 04/02/18 08:10 04/02/18 11:01 04/02/18 08:10 04/02/18 08:10 04/02/18 08:10 Oxygen Flow Rate (L/min) 2 Oxygen Delivery Method Nasal Cannula Weight: 124.738 kg Body Mass Index (BMI) 37.3 Finger Stick Blood Glucose 85 Intake and Output for Last 24 Hours 03/31/18 04/01/18 04/02/18 23:59 23:59 23:59 Intake Total 600 / 600 4665 / 4665 1938 Output Total 1225 / 1225 Balance 600 / 600 3440 / 3440 1938 Laboratory Tests Past 24 Hrs 04/02/18 05:55 Sodium 145 Potassium 4.0 Chloride 110 H Carbon Dioxide 27.0 Anion Gap 8 BUN 18 Creatinine 1.23 Estim Creat Clear Calc 60.46 Est GFR (MDRD) Af Amer 75 Est GFR (MDRD) Non-Af 62 BUN/Creatinine Ratio 14.6 Glucose 51 L Calcium 7.2 L POC Glucose 04/02/18 04/02/18 04/02/18 07:47 07:20 06:52 POC Glucose 81 72 50 L 04/01/18 04/01/18 04/01/18 21:31 17:06 12:44 POC Glucose 273 H 300 H 269 H mri reviewed, no acute Assessment/Plan All Active Problems Syncope (Acute) Seizure (Acute) Coronary artery disease (Acute) Non-STEMI (non-ST elevated myocardial infarction) (Acute) DVT (deep venous thrombosis) (Acute) Pulmonary embolism (Acute) a/p 1st seizure, history of small cell lung ca mri negative for mets but remains concern keppra 500mg bid no driving fu with oncology in [place] will need followup mri 6weeks to surveil for mets
[2018-04-02] MEDS: Dextrose 50%-Water 25 GM/50 ML DISP.SYRIN IV (12:01)
[2018-04-02 12:10] LABS: Bedside Glucose 62 mg/dL (70-110)
--- NOTE | 2018-04-02 12:36 | EEG ---
- Electroencephalogram Date of service 04/02/2018 This is an 18 channel electroencephalogram performed utilizing the International 10-20 electrode placement protocol as well as hyperventilation, photic stimulation and EKG reference leads in this 72-year-old male who suffered a seizure associated with tongue biting. Background activity is 8-12 Hz symmetrically in the posterior leads which attenuates with eye-opening. Hyperventilation is performed with good effort with no lateralizing or epileptiform changes in the post hyperventilatory phase is unremarkable. The patient did remain awake throughout the recording, there are occasional bifrontal sharp waves with an after coming slow wave. There are no electrographic seizures. EKG is normal sinus rhythm throughout the recording and photic stimulation generates a normal symmetric driving response in the posterior leads. Impression: Abnormal electroencephalogram due to the presence of an occasional bifrontal sharp wave without electrographic seizure.
--- NOTE | 2018-04-02 12:45 | PCM.DC.SUM ---
<Erica Singh - Last Filed: 04/02/18 13:01> Discharge Date and Diagnosis Date of Admission: 03/31/18 Date of Discharge: 04/02/18 - Primary Discharge Diagnosis Active and Suspected Problems 1. New onset seizure 2. New onset atrial fibrillation 3. NSTEMI 4. Lactic acidosis, suspect reactive due to #1, resolved 5. Type 2 diabetes mellitus 6. CAD status post stents x4 7. Chronic hypoxic respiratory failure due to chronic COPD 8. Obstructive sleep apnea 9. History of PE 10. Obesity 11. Chronic kidney disease stage III, suspected Hospital Course and Treatment Imaging Results: Diagnostic Data Brain CT 03/31/18 11:59 IMPRESSION: 1. No acute intracranial process. 2. If symptoms persist, MRI of the brain is recommended. Electronically Signed: Homero Zhang MD at 13:58 EDT Tel , Service support , Chest X-Ray 03/31/18 12:10 IMPRESSION: Mild loss of volume of the right lung. Possible mild right perihilar infiltrate and atelectatic changes. Follow-up exams are recommended. Electronically Signed: Homero Zhang MD at 12:30 EDT Tel , Service support , Brain MRI 04/01/18 10:00 IMPRESSION: 1. No MRI evidence of intracranial metastatic disease, acute or subacute ischemic infarct or acute intracranial abnormality. 2. Chronic white matter ischemic changes in both cerebral hemispheres. Electronically Signed: New Busby MD at 12:21 EDT , Service support , Dr. Rodríguez- Neurology Dr. Cloud- Cardiology Operations: None Procedures: Electroencephalogram Summary of Care Provided: The patient is a 72 year old M admitted 03/31/2018 due to syncopal episode, suspected seizure. Patient and requesting transfer to [facility] in [place] for further evaluation. Patient had prior stents at this facility and this is where patient and reside. Facility agreeable to accept patient and transfer arranged. 1. New onset seizure-witnessed by . No further seizure activity. Evaluated by neurology. Neurology recommending initiating Keppra 500 mg p.o. twice daily. MRI of brain negative. EEG abnormal due to presence of occasional bifrontal sharp wave without electrographic seizure. CK 756. Seizure precautions. Neurology recommending follow-up MRI in 6 weeks. No driving. Recommend outpatient follow-up with neurology. 2. New onset atrial fibrillation-patient reported to have A. fib and ambulance. Sinus tachycardia on admission. Currently sinus rhythm. Continue Xarelto which patient is taking due to history of PE. TSH within normal limits. Cardiology consulted. Monitor telemetry. 3. NSTEMI-troponin 0.1, 4.8, 8.4. No EKG changes. Patient denies chest pain. Suspect demand ischemia secondary to #1. Cardiology consulted. Cardiology recommending cath. Patient requesting transfer to facility where he resides as noted above. Telemetry monitoring during transport. 4. Lactic acidosis-lactic acid 8.6 on admission. Repeat lactic acid 0.9. Suspect reactive due to seizure. 5. Type 2 diabetes odumexri-Arov-[id number] before meals at bedtime with sliding scale insulin. Continue long-acting regimen. 6. CAD status post stents x4-patient states most recent intervention was approximately 5 years ago. Continue aspirin, Plavix, statin, fenofibrate, ezetimibe. Xarelto on hold given plan for cath. 7. Chronic hypoxic respiratory failure due to chronic COPD-continue supplement oxygen to maintain O2 at or above 90%. As needed aerosols. 8. Obstructive sleep apnea-continue CPAP. 9. History of PE-patient states this occurred approximately 1 year ago. On Xarelto. 10. Obesity-encourage diet lifestyle modifications. 11. Elevated creatinine-suspect chronic kidney disease stage III. No prior labs for comparison. General: Alert, Oriented x3, Cooperative, No apparent distress HEENT: Atraumatic, PERRLA, EOMI, Normocephalic Neck: Supple, No JVD, Negative Carotid Bruits Lungs: Clear to auscultation, Normal air movement Cardiovascular: Regular rate, Regular Rhythm, Normal S1, Normal S2, No murmurs Abdomen: Bowel Sounds Present, Soft, Non Tender, Non-Distended, Obese Extremities: No clubbing, No cyanosis, No edema, Capillary Refill Less than 3 Seconds Skin: No rashes, No breakdown Musculoskeletal: No Tenderness to Palpation of Joints or Extremities Neurological: Cranial nerves II-XII grossly intact, Neuro grossly intact Psych/Mental Status: Normal Affect, Appropriate Patient seen exam prior to discharge. Physical assessment as noted above. Patient is stable at time of transfer to patient's preferred medical facility for further cardiac evaluation. This patient was seen by RANDALL Cole under the supervision of Dr. Baez. - Physical Exam Vital Signs Temp Pulse Resp BP Pulse Ox 97.7 F L 84 17 152/77 H 98 04/02/18 08:10 04/02/18 11:01 04/02/18 08:10 04/02/18 08:10 04/02/18 08:10 Oxygen Flow Rate (L/min) 2 Oxygen Delivery Method Nasal Cannula Weight: 274 lb 14.663 oz Body Mass Index (BMI) 37.3 Finger Stick Blood Glucose 85 Intake and Output for Last 24 Hours 03/31/18 04/01/18 04/02/18 23:59 23:59 23:59 Intake Total 600 / 600 4665 / 4665 3265 / 3265 Output Total 1225 / 1225 Balance 600 / 600 3440 / 3440 3265 / 3265 Laboratory Tests Past 24 Hrs 04/02/18 05:55 Sodium 145 Potassium 4.0 Chloride 110 H Carbon Dioxide 27.0 Anion Gap 8 BUN 18 Creatinine 1.23 Estim Creat Clear Calc 60.46 Est GFR (MDRD) Af Amer 75 Est GFR (MDRD) Non-Af 62 BUN/Creatinine Ratio 14.6 Glucose 51 L Calcium 7.2 L POC Glucose 04/02/18 04/02/18 04/02/18 11:55 07:47 07:20 POC Glucose 62 L 81 72 04/02/18 04/01/18 04/01/18 06:52 21:31 17:06 POC Glucose 50 L 273 H 300 H 04/01/18 12:44 POC Glucose 269 H Home Medications: Medications to take at Discharge Albuterol Aerosols [Ventolin Aerosols] 2.5 mg INHALATION TID 03/31/18 Aspirin [Aspirin, Baby] 81 mg PO DAILY@0800 03/31/18 Calcium Citrate 200 mg PO BID 03/31/18 Clopidogrel Bisulfate [Plavix] 75 mg PO DAILY 03/31/18 Docusate Sodium [Colace] 100 mg PO DAILY 03/31/18 Etanercept [Enbrel] 25 mg SQ FR 03/31/18 Ezetimibe [Zetia] 10 mg PO DAILY 03/31/18 Fenofibrate Nanocrystallized [Triglide] 160 mg PO DAILY 03/31/18 Fluticasone/Vilanterol [Breo Ellipta 200-25 Mcg INH] 1 each IH BID 03/31/18 Furosemide [Lasix] 20 mg PO DAILY 03/31/18 Gabapentin [Neurontin] 300 mg PO BID 03/31/18 Humalog 60 unit SQ BID 03/31/18 Insulin Lispro [Humalog] unit SQ .COMPLEX 03/31/18 Ipratropium/Albuterol Sulfate [Duoneb] 3 ml INHALATION TID 03/31/18 L.acidoph,Paracasei, B.lactis [Probiotic] 1 capsule PO DAILY 03/31/18 Multivitamin [Multiple Vitamins] 1 each PO DAILY 03/31/18 Niacin 500 mg PO DAILY 03/31/18 [place]-3/Dha/Epa/Fish Oil [[place] 3 500 Softgel] 1 each PO DAILY 03/31/18 Pravastatin [Pravachol] 40 mg PO DAILY 03/31/18 Rivaroxaban [Xarelto] 20 mg PO DAILY 03/31/18 Tiotropium [place] [Spiriva] 18 mcg IH DAILY 03/31/18 Vitamin B Complex/Folic Acid [Super B Maxi Complex Caplet] 0.4 mg PO DAILY 03/31/18 Vitamin C 1,000 mg PO DAILY 03/31/18 Primary Care Physician: Sterling Renee,Out of [Primary Care Provider] - Disposition: Acute care Hospital Minutes spent on discharge:: 35 Patient Condition:: Stable Medical Necessity - Tobacco Use Smoking Status: Former smoker Meaningful Use Info Meaningful Use Diagnoses (Choose all that apply): None applicable <Katherine Baez E - Last Filed: 04/03/18 11:28> Hospital Course and Treatment Summary of Care Provided: Hospitalist note: Discharge summary above reviewed and I agree with above discharge and transfer plan. Patient was admitted for new onset seizure as well as new onset atrial fibrillation and he was found to have acute non-ST elevation ND. Regarding the seizure, this is new onset and he never history of seizure in the past. CT scan brain showed no acute findings. MRI brain performed and showed no evidence of acute findings as well. Neurology consulted and recommended to start patient on Keppra and recommended EEG. EEG performed and revealed abnormal electroencephalogram due to presence of occasional bifrontal sharp waves without electrographic seizures. The patient has history of small cell lung cancer but his MRI was negative for metastasis. According to neurology, although MRI was negative for metastasis but metastasis remains a concern and recommended follow-up MRI in 6 weeks. Patient was found to have new onset atrial fibrillation and he converted to sinus rhythm. He was already on Xarelto for history of PE. His TSH was normal. Patient was found to have acute non-ST elevation ND for which cardiology consulted and recommended cardiac catheterization. The patient requested transfer to hospital where he resides and where his drug abuse program coordinator is. Patient was found to have lactic acidosis which is attributed to seizure. There was no evidence of infection. After arrangement, patient was transferred to preferred medical facility when his drug abuse program coordinator is for further workup regarding the acute ST elevation ND. Patient was transferred in stable medical condition. - Physical Exam General: Alert, Oriented x3, Cooperative, No apparent distress. HEENT: Atraumatic, PERRLA, EOMI. Neck: Supple, No JVD, Negative Carotid Bruits, Trachea Midline, Thyroid Normal. Lungs: Clear to auscultation, Normal air movement, No rhonchi, No wheeze, No rales. Cardiovascular: Regular rate, Regular Rhythm, Normal S1, Normal S2, PMI Normal. Abdomen: Bowel Sounds Present, Soft, Non Tender, Non-Distended, No Hepato-splenomegaly. Extremities: No clubbing, No cyanosis, No edema Skin: No rashes, No breakdown Neurological: Neuro grossly intact Vital Signs are stable. This note was generated with [employer] dictation software. It may contain incorrect words, spelling, and punctuation that were not noted in checking the note before signing. - Physical Exam Vital Signs Temp Pulse Resp BP Pulse Ox 98.4 F 90 19 H 158/84 H 95 04/02/18 14:53 04/02/18 14:53 04/02/18 14:53 04/02/18 14:53 04/02/18 14:53 Oxygen Flow Rate (L/min) 2 Oxygen Delivery Method Nasal Cannula Weight: 274 lb 14.663 oz Body Mass Index (BMI) 37.3 Finger Stick Blood Glucose 85 Intake and Output for Last 24 Hours 03/31/18 04/01/18 04/02/18 23:59 23:59 23:59 Intake Total 600 / 600 4665 / 4665 3265 / 3265 Output Total 1225 / 1225 Balance 600 / 600 3440 / 3440 3265 / 3265 Laboratory Tests Past 24 Hrs 04/02/18 05:55 Sodium 145 Potassium 4.0 Chloride 110 H Carbon Dioxide 27.0 Anion Gap 8 BUN 18 Creatinine 1.23 Estim Creat Clear Calc 60.46 Est GFR (MDRD) Af Amer 75 Est GFR (MDRD) Non-Af 62 BUN/Creatinine Ratio 14.6 Glucose 51 L Calcium 7.2 L POC Glucose 04/02/18 04/02/18 04/02/18 15:02 11:55 07:47 POC Glucose 86 62 L 81 04/02/18 04/02/18 04/01/18 07:20 06:52 21:31 POC Glucose 72 50 L 273 H 04/01/18 17:06 POC Glucose 300 H Meaningful Use Info Meaningful Use Diagnoses (Choose all that apply): None applicable Code Visit Inpatient E&M: 76705 Disch Hosp
--- NOTE | 2018-04-02 12:59 | DS.PCM_ITS ---
<Erica Singh - Last Filed: 04/02/18 13:01> Discharge Date and Diagnosis Date of Admission: 03/31/18 Date of Discharge: 04/02/18 - Primary Discharge Diagnosis Active and Suspected Problems 1. New onset seizure 2. New onset atrial fibrillation 3. NSTEMI 4. Lactic acidosis, suspect reactive due to #1, resolved 5. Type 2 diabetes mellitus 6. CAD status post stents x4 7. Chronic hypoxic respiratory failure due to chronic COPD 8. Obstructive sleep apnea 9. History of PE 10. Obesity 11. Chronic kidney disease stage III, suspected Hospital Course and Treatment Imaging Results: Diagnostic Data Brain CT 03/31/18 11:59 IMPRESSION: 1. No acute intracranial process. 2. If symptoms persist, MRI of the brain is recommended. Electronically Signed: Homero Zhang MD at 13:58 EDT Tel , Service support , Chest X-Ray 03/31/18 12:10 IMPRESSION: Mild loss of volume of the right lung. Possible mild right perihilar infiltrate and atelectatic changes. Follow-up exams are recommended. Electronically Signed: Homero Zhang MD at 12:30 EDT Tel , Service support , Brain MRI 04/01/18 10:00 IMPRESSION: 1. No MRI evidence of intracranial metastatic disease, acute or subacute ischemic infarct or acute intracranial abnormality. 2. Chronic white matter ischemic changes in both cerebral hemispheres. Electronically Signed: New Busby MD at 12:21 EDT , Service support , Dr. Rodríguez- Neurology Dr. Cloud- Cardiology Operations: None Procedures: Electroencephalogram Summary of Care Provided: The patient is a 72 year old M admitted 03/31/2018 due to syncopal episode, suspected seizure. Patient and requesting transfer to [facility] in [place] for further evaluation. Patient had prior stents at this facility and this is where patient and reside. Facility agreeable to accept patient and transfer arranged. 1. New onset seizure-witnessed by . No further seizure activity. Evaluated by neurology. Neurology recommending initiating Keppra 500 mg p.o. twice daily. MRI of brain negative. EEG abnormal due to presence of occasional bifrontal sharp wave without electrographic seizure. CK 756. Seizure precautions. Neurology recommending follow-up MRI in 6 weeks. No driving. Rec [facility] outpatient follow-up with neurology. 2. New onset atrial fibrillation-patient reported to have A. fib and ambulance. Sinus tachycardia on admission. Currently sinus rhythm. Continue Xarelto which patient is taking due to history of PE. TSH within normal limits. Cardiology consulted. Monitor telemetry. 3. NSTEMI-troponin 0.1, 4.8, 8.4. No EKG changes. Patient denies chest pain. Suspect demand ischemia secondary to #1. Cardiology consulted. Cardiology recommending cath. Patient requesting transfer to facility where he resides as noted above. Telemetry monitoring during transport. 4. Lactic acidosis-lactic acid 8.6 on admission. Repeat lactic acid 0.9. Suspect reactive due to seizure. 5. Type 2 diabetes lnvlkjtx-[place]-Uqfki before meals at bedtime with sliding scale insulin. Continue long-acting regimen. 6. CAD status post stents x4-patient states most recent intervention was approximately 5 years ago. Continue aspirin, Plavix, statin, fenofibrate, ezetimibe. Xarelto on hold given plan for cath. 7. Chronic hypoxic respiratory failure due to chronic COPD-continue supplement oxygen to maintain O2 at or above 90%. As needed aerosols. 8. Obstructive sleep apnea-continue CPAP. 9. History of PE-patient states this occurred approximately 1 year ago. On Xarelto. 10. Obesity-encourage diet lifestyle modifications. 11. Elevated creatinine-suspect chronic kidney disease stage III. No prior labs for comparison. General: Alert, Oriented x3, Cooperative, No apparent distress HEENT: Atraumatic, PERRLA, EOMI, Normocephalic Neck: Supple, No JVD, Negative Carotid Bruits Lungs: Clear to auscultation, Normal air movement Cardiovascular: Regular rate, Regular Rhythm, Normal S1, Normal S2, No murmurs Abdomen: Bowel Sounds Present, Soft, Non Tender, Non-Distended, Obese Extremities: No clubbing, No cyanosis, No edema, Capillary Refill Less than 3 Seconds Skin: No rashes, No breakdown Musculoskeletal: No Tenderness to Palpation of Joints or Extremities Neurological: Cranial nerves II-XII grossly intact, Neuro grossly intact Psych/Mental Status: Normal Affect, Appropriate Patient seen exam prior to discharge. Physical assessment as noted above. Patient is stable at time of transfer to patient's preferred medical facility for further cardiac evaluation. This patient was seen by RANDALL Cole under the supervision of Dr. Baez. - Physical Exam Vital Signs Temp Pulse Resp BP Pulse Ox 97.7 F L 84 17 152/77 H 98 04/02/18 08:10 04/02/18 11:01 04/02/18 08:10 04/02/18 08:10 04/02/18 08:10 Oxygen Flow Rate (L/min) 2 Oxygen Delivery Method Nasal Cannula Weight: 274 lb 14.663 oz Body Mass Index (BMI) 37.3 Finger Stick Blood Glucose 85 Intake and Output for Last 24 Hours 03/31/18 04/01/18 04/02/18 23:59 23:59 23:59 Intake Total 600 / 600 4665 / 4665 3265 / 3265 Output Total 1225 / 1225 Balance 600 / 600 3440 / 3440 3265 / 3265 Laboratory Tests Past 24 Hrs 04/02/18 05:55 Sodium 145 Potassium 4.0 Chloride 110 H Carbon Dioxide 27.0 Anion Gap 8 BUN 18 Creatinine 1.23 Estim Creat Clear Calc 60.46 Est GFR (MDRD) Af Amer 75 Est GFR (MDRD) Non-Af 62 BUN/Creatinine Ratio 14.6 Glucose 51 L Calcium 7.2 L POC Glucose 04/02/18 04/02/18 04/02/18 11:55 07:47 07:20 POC Glucose 62 L 81 72 04/02/18 04/01/18 04/01/18 06:52 21:31 17:06 POC Glucose 50 L 273 H 300 H 04/01/18 12:44 POC Glucose 269 H Home Medications: Medications to take at Discharge Albuterol Aerosols [Ventolin Aerosols] 2.5 mg INHALATION TID 03/31/18 Aspirin [Aspirin, Baby] 81 mg PO DAILY@0800 03/31/18 Calcium Citrate 200 mg PO BID 03/31/18 Clopidogrel Bisulfate [Plavix] 75 mg PO DAILY 03/31/18 Docusate Sodium [Colace] 100 mg PO DAILY 03/31/18 Etanercept [Enbrel] 25 mg SQ FR 03/31/18 Ezetimibe [Zetia] 10 mg PO DAILY 03/31/18 Fenofibrate Nanocrystallized [Triglide] 160 mg PO DAILY 03/31/18 Fluticasone/Vilanterol [Breo Ellipta 200-25 Mcg INH] 1 each IH BID 03/31/18 Furosemide [Lasix] 20 mg PO DAILY 03/31/18 Gabapentin [Neurontin] 300 mg PO BID 03/31/18 Humalog 60 unit SQ BID 03/31/18 Insulin Lispro [Humalog] unit SQ .COMPLEX 03/31/18 Ipratropium/Albuterol Sulfate [Duoneb] 3 ml INHALATION TID 03/31/18 L.acidoph,Paracasei, B.lactis [Probiotic] 1 capsule PO DAILY 03/31/18 Multivitamin [Multiple Vitamins] 1 each PO DAILY 03/31/18 Niacin 500 mg PO DAILY 03/31/18 [place]-3/Dha/Epa/Fish Oil [[place] 3 500 Softgel] 1 each PO DAILY 03/31/18 Pravastatin [Pravachol] 40 mg PO DAILY 03/31/18 Rivaroxaban [Xarelto] 20 mg PO DAILY 03/31/18 Tiotropium [place] [Spiriva] 18 mcg IH DAILY 03/31/18 Vitamin B Complex/Folic Acid [Super B Maxi Complex Caplet] 0.4 mg PO DAILY 03/31/18 Vitamin C 1,000 mg PO DAILY 03/31/18 Primary Care Physician: Sterling Renee,Out of [Primary Care Provider] - Disposition: Acute care Hospital Minutes spent on discharge:: 35 Patient Condition:: Stable Medical Necessity - Tobacco Use Smoking Status: Former smoker Meaningful Use Info Meaningful Use Diagnoses (Choose all that apply): None applicable <Katherine Baez - Last Filed: 04/03/18 11:28> Hospital Course and Treatment Summary of Care Provided: Hospitalist note: Discharge summary above reviewed and I agree with above discharge and transfer plan. Patient was admitted for new onset seizure as well as new onset atrial fibrillation and he was found to have acute non-ST elevation SD. Regarding the seizure, this is new onset and he never history of seizure in the past. CT scan brain showed no acute findings. MRI brain performed and showed no evidence of acute findings as well. Neurology consulted and recommended to start patient on Keppra and recommended EEG. EEG performed and revealed abnormal electroencephalogram due to presence of occasional bifrontal sharp waves without electrographic seizures. The patient has history of small cell lung cancer but his MRI was negative for metastasis. According to neurology, although MRI was negative for metastasis but metastasis remains a concern and recommended follow- up MRI in 6 weeks. Patient was found to have new onset atrial fibrillation and he converted to sinus rhythm. He was already on Xarelto for history of PE. His TSH was normal. Patient was found to have acute non-ST elevation SD for which cardiology consulted and recommended cardiac catheterization. The patient requested transfer to hospital where he resides and where his technology coach is. Patient was found to have lactic acidosis which is attributed to seizure. There was no evidence of infection. After arrangement, patient was transferred to preferred medical facility when his technology coach is for further workup regarding the acute ST elevation SD. Patient was transferred in stable medical condition. - Physical Exam General: Alert, Oriented x3, Cooperative, No apparent distress. HEENT: Atraumatic, PERRLA, EOMI. Neck: Supple, No JVD, Negative Carotid Bruits, Trachea Midline, Thyroid Normal. Lungs: Clear to auscultation, Normal air movement, No rhonchi, No wheeze, No rales. Cardiovascular: Regular rate, Regular Rhythm, Normal S1, Normal S2, PMI Normal. Abdomen: Bowel Sounds Present, Soft, Non Tender, Non-Distended, No Hepato- splenomegaly. Extremities: No clubbing, No cyanosis, No edema Skin: No rashes, No breakdown Neurological: Neuro grossly intact Vital Signs are stable. This note was generated with [employer] dictation software. It may contain incorrect words, spelling, and punctuation that were not noted in checking the note before signing. - Physical Exam Vital Signs Temp Pulse Resp BP Pulse Ox 98.4 F 90 19 H 158/84 H 95 04/02/18 14:53 04/02/18 14:53 04/02/18 14:53 04/02/18 14:53 04/02/18 14:53 Oxygen Flow Rate (L/min) 2 Oxygen Delivery Method Nasal Cannula Weight: 274 lb 14.663 oz Body Mass Index (BMI) 37.3 Finger Stick Blood Glucose 85 Intake and Output for Last 24 Hours 03/31/18 04/01/18 04/02/18 23:59 23:59 23:59 Intake Total 600 / 600 4665 / 4665 3265 / 3265 Output Total 1225 / 1225 Balance 600 / 600 3440 / 3440 3265 / 3265 Laboratory Tests Past 24 Hrs 04/02/18 05:55 Sodium 145 Potassium 4.0 Chloride 110 H Carbon Dioxide 27.0 Anion Gap 8 BUN 18 Creatinine 1.23 Estim Creat Clear Calc 60.46 Est GFR (MDRD) Af Amer 75 Est GFR (MDRD) Non-Af 62 BUN/Creatinine Ratio 14.6 Glucose 51 L Calcium 7.2 L POC Glucose 04/02/18 04/02/18 04/02/18 15:02 11:55 07:47 POC Glucose 86 62 L 81 04/02/18 04/02/18 04/01/18 07:20 06:52 21:31 POC Glucose 72 50 L 273 H 04/01/18 17:06 POC Glucose 300 H Meaningful Use Info Meaningful Use Diagnoses (Choose all that apply): None applicable Code Visit Inpatient E&M: 28128 Disch Hosp
--- NOTE | 2018-04-02 13:04 | PN.CARD_ITS ---
Subjectve: Patient doing well this morning, status post EEG. Telemetry is negative. Patient elected to proceed with lateral transfer to [place] where his primary metal stamper resides and where he has had previous catheterization and stents. That process is ongoing, and he declines catheterization here at this time. Objective: Vital Signs Temp Pulse Resp BP Pulse Ox 97.7 F L 84 17 152/77 H 98 04/02/18 08:10 04/02/18 11:01 04/02/18 08:10 04/02/18 08:10 04/02/18 08:10 Oxygen Flow Rate (L/min) 2 Oxygen Delivery Method Nasal Cannula Weight: 274 lb 14.663 oz Body Mass Index (BMI) 37.3 Finger Stick Blood Glucose 85 Intake and Output for Last 24 Hours 03/31/18 04/01/18 04/02/18 23:59 23:59 23:59 Intake Total 600 / 600 4665 / 4665 3265 / 3265 Output Total 1225 / 1225 Balance 600 / 600 3440 / 3440 3265 / 3265 General: Awake, Alert, Oriented x 3 HEENT: PERRL, EOMI, Sclera Non Icteric Neck: Supple, Good ROM, No Lymph Node Enlargement Lungs: Clear to auscultation Cardiovascular: Regular Rhythm, Normal S1, Normal S2, No Murmurs, No Rubs, No Gallops Vascular: No Carotid Bruits, Normal Femoral Pulses, Normal Radial Pulses, Normal Dorsalis Pedal Pulse, Normal Posterior Tibial Pulses Abdomen: Bowel Sounds Present, Soft, Non Tender, No HSM, No Organomegaly Extremities: No Cyanosis, No Clubbing, No edema Neurological: No Focal Motor or Sensory Deficit 04/02/18 05:55: Sodium 145, Potassium 4.0, Chloride 110 H, Carbon Dioxide 27.0, Anion Gap 8, BUN 18, Creatinine 1.23, Est GFR (MDRD) Af Amer 75, Est GFR (MDRD) Non-Af 62, BUN/Creatinine Ratio 14.6, Glucose 51 L, Calcium 7.2 L Rhythm: EKG: ECHO: Stress Test: Cardiac Cath: PCI: CT Surgery: Holter monitor: EPS: PPM: CXR: Chest CT Scan: EEG results pending. Appreciate neurology consult. Medical Necessity - Tobacco Use Smoking Status: Former smoker Assessment/Plan 1. Coronary artery disease: Although the patient had no exertional anginal symptoms, he apparently did have a syncopal episode possibly positional in nature, with associated abnormal troponins, and dynamic EKG changes. I recommend the patient continue Plavix and be reloaded with baby aspirin, and hold his Xarelto. His MRI of his brain was negative for metastatic process or acute injury. Given his abnormal troponins and known coronary disease I recommend that he undergo a diagnostic coronary angiogram tomorrow morning to determine if he has any reversible coronary stenoses that may benefit from repeat stenting. Patient has known stenting in 2011 x 2 to his left circumflex as well as stenting x1 to the diagonal branch, either 1 of which may be inducing the patient's EKG changes and abnormal troponins. If the patient has no significant correctable coronary disease that I would recommend medical management going forward with baby aspirin and Plavix given his non-STEMI. Would recommend obtaining old records from his hospitals in [place] if possible. It appears that the patient and his would wish to transfer back to [place] for further evaluation, and that process appears to be ongoing at this time. In addition I recommend the patient undergo a 2D echo with Doppler to document his LV function, valvular status, and pulmonary pressures. Results pending. 2. DVT/PE: The patient may require triple anticoagulant type therapy including baby aspirin, Plavix, and resumption of Xarelto with respect to his groin given his history of lung cancer, hypercoagulable state, and previous DVT PE. 3. Hyperlipidemia: Continue ezetimibe niacin and fenofibrate. Recommend obtaining a fasting lipid profile. 4. Small cell lung cancer: Apparently this is in remission and he is followed at the [facility]. No plans for surgery or repeat chemotherapy or x-ray therapy at this time. 5. Obstructive sleep apnea: The patient will continue chronic O2 therapy for COPD and SCOT as well as CPAP in the evening. No changes needed at this time. 6. Thank you very much for the opportunity to participate in the cardiac care of your patient. Apparently we are awaiting a bed at the hospital in [place] and for arrangements to be made for transportation of the patient. EEG results are pending, appreciate neurology consultation. Code Visit Inpatient E&M: 00752 Subs Hosp L2
[2018-04-02] MEDS: Budesonide Respules 0.5 MG/2 ML AMPUL.NEB. INHALATION (13:33)
[2018-04-02] MEDS: Ipratropium/Albuterol Sulfate 3 ML AMPUL.NEB INHALATION (13:33)
--- NOTE | 2018-04-02 14:49 | NURSING ---
Report called Yumi at [facility].
[2018-04-02 15:11] LABS: Bedside Glucose 86 mg/dL (70-110)
== END 2018-04-02 16:45 | disposition short-term general hospital (02) | DRG 100 ==
LOC: ED 15:24 → PCU 15:44
PROVIDERS: Family Medicine; Nurse Practitioner Family; Psychiatry & Neurology Neurology; Admitting Provider Student in an Organized Health Care Education/Training Program; Emergency Provider Emergency Medicine; Visit Provider Hospitalist
DX: R56.9 Unspecified convulsions (principal); I21.A1 Myocardial infarction type 2; E87.2 Acidosis; J96.11 Chronic respiratory failure with hypoxia; I48.91 Unspecified atrial fibrillation; Z92.3 Personal history of irradiation; Z92.21 Personal history of antineoplastic chemotherapy; Z99.81 Dependence on supplemental oxygen; Z86.711 Personal history of pulmonary embolism; Z79.01 Long term (current) use of anticoagulants; Z85.118 Personal history of other malignant neoplasm of bronchus and lung; J44.9 Chronic obstructive pulmonary disease, unspecified; I25.10 Atherosclerotic heart disease of native coronary artery without angina pectoris; Z95.5 Presence of coronary angioplasty implant and graft; E11.9 Type 2 diabetes mellitus without complications; G47.33 Obstructive sleep apnea (adult) (pediatric); E66.9 Obesity, unspecified; Z68.37 Body mass index [BMI] 37.0-37.9, adult; Z87.891 Personal history of nicotine dependence; E78.5 Hyperlipidemia, unspecified; Z79.4 Long term (current) use of insulin
CPT/HCPCS: 36415; 70450; 70553; 71045; 80048; 80053; 80307; 80320; 81001; 82550; 82962; 83605; 83690; 84443; 84484; 85025; 85610; 85730; 93005; 94640; 99285; A9585; J7030; A4216; G0480